=== PATIENT | female | born 1965 | race Caucasian/White ===

== ENCOUNTER 2017-12-17 13:35 | Emergency (ER) | payer BC, OTHER ==
[2017-12-17 13:44] VITALS: RESP 16
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
--- NOTE | 2017-12-17 15:09 | XR ---
EXAMINATION TYPE: XR chest 1V DATE OF EXAM: 12/17/2017 HISTORY: Shortness of breath. COMPARISON: None. TECHNIQUE: Single view of the chest is submitted. FINDINGS: Demonstrated are scattered senescent parenchymal change. There is no evidence for focal infiltrate. The heart is stable. Hilar and mediastinal structures are within normal limits. Degenerative changes are seen of the dorsal spine. IMPRESSION: 1. Chronic changes without evidence for acute pulmonary disease.
[2017-12-17 15:45] VITALS: BP 160/99; PULSE 70; TEMP 98
== END 2017-12-17 15:44 | disposition home or self-care (01) ==
LOC: EC 13:35
DX: S16.1XXA Strain of muscle, fascia and tendon at neck level, initial encounter (principal); S20.20XA Contusion of thorax, unspecified, initial encounter; S00.90XA Unspecified superficial injury of unspecified part of head, initial encounter; F17.200 Nicotine dependence, unspecified, uncomplicated; V89.2XXA Person injured in unspecified motor-vehicle accident, traffic, initial encounter; Y92.410 Unspecified street and highway as the place of occurrence of the external cause
CPT/HCPCS: 70450; 71045; 72125; 99284

== ENCOUNTER → 2022-05-22 | Outpatient (CLI) | payer OTHER ==
--- NOTE | 2022-05-22 10:27 | CTL ---
EXAMINATION TYPE: CT Low Dose Lung DATE OF EXAM ORDERED: 05/22/2022 HISTORY: Long-term tobacco use. Lung cancer screening CT DLP: 67.[address] CTDI: 1.8 mGy Automated exposure control for dose reduction was used. SCREENING VISIT: Baseline COMPARISON: None TECHNIQUE: Low dose computed tomography scan was performed through the chest at 1 mm thick sections a nd reconstructed images in multiple planes at 1 mm and [address] DIAGNOSTIC QUALITY: Satisfactory FINDINGS: LUNG NODULES: Present, detailed below: Scattered small nodules bilaterally. Largest measures 7.0 x 3.5 mm anterior left upper lobe axial image 109. There is a calcified 4 mm left upper lobe nodule or benign granuloma incidentally noted. LUNGS: COPD: Severity: Mild to moderate Fibrosis: Severity: None Lymph nodes: None Other findings: Ascending aorta measures up to 4.2 cm in diameter image 27 series 5 RIGHT PLEURAL SPACE: Effusion: None Calcification: None Thickening: None Pneumothorax: None LEFT PLEURAL SPACE: Effusion: None Calcification: None Thickening: None Pneumothorax: None HEART: Heart Size: Normal Coronary Calcification: Mild Pericardial Effusion: None OTHER FINDINGS: Upper abdomen: None Bony thorax: None Supraclavicular region: None Other: None IMPRESSION: Scattered small nodules as detailed above. CT LUNG RAD AND CT CHEST RECOMMENDATION: Lung-Rad 3 Probably Benign: 6 month follow-up LDCT. S Modifier (other clinically significant findings): S Note made of ascending aortic aneurysm up to 4.2 cm.
== END | disposition home or self-care (01) ==
LOC: RADCTMAIN 09:39
PROVIDERS: ATTEND Family Medicine
DX: Z12.2 Encounter for screening for malignant neoplasm of respiratory organs (principal); R91.8 Other nonspecific abnormal finding of lung field; Z87.891 Personal history of nicotine dependence
CPT/HCPCS: 71271

== ENCOUNTER → 2023-05-19 | Outpatient (CLI) | payer OTHER ==
--- NOTE | 2023-05-20 09:10 | CTL ---
EXAMINATION TYPE: CT Low Dose Lung DATE OF EXAM ORDERED: 05/19/2023 COMPARISON: 05/22/2022 HISTORY: . Low Dose CT Lung Screening CT DLP: 69.[address] CTDI: 1.9 mGy IV CONTRAST USED: None. SCREENING VISIT: First visit COMPARISON: None. TECHNIQUE: Low dose computed tomography scan was performed through the chest at 1 millimeter thick se ctions and reconstructed images in the coronal plane at [address] DIAGNOSTIC QUALITY: Satisfactory FINDINGS: LUNG NODULES: Stable 5.2 mm pulmonary nodule right upper lobe image 43. There is a 6.3 mm left upper lobe pulmonary nodule near the lingula with prior measurement of 7 mm this is seen best on image 162. 3 mm pulmonary nodule image 106 right upper lobe. Calcified granuloma left upper lobe unchanged. No new nodules present. LUNGS: COPD: Severity: Mild Fibrosis: Severity:None Lymph nodes: None Other findings: None RIGHT PLEURAL SPACE: Effusion: None Calcification: None Thickening: None Pneumothorax: None LEFT PLEURAL SPACE: Effusion: None Calcification: None Thickening: None Pneumothorax: None HEART: Heart Size: Mildly enlarged Coronary calcification: Mild Pericardial effusion: None Ascending thoracic aortic aneurysm measuring 4.3 cm AP dimension versus 4.2 cm previously. OTHER FINDINGS: Upper abdomen: No significant abnormality Bony thorax: Degenerative changes Supraclavicular region: No significant abnormalityOther: No significant abnormalityI IMPRESSION: Benign FOLLOW UP CT CHEST RECOMMENDATION: Follow-up screening in one year CT LUNG RAD: LUNG RAD CATEGORY 2 benign appearance and/or behavior.
== END | disposition home or self-care (01) ==
LOC: RADCTMAIN 14:42
PROVIDERS: ATTEND Family Medicine
DX: Z12.2 Encounter for screening for malignant neoplasm of respiratory organs (principal); J43.9 Emphysema, unspecified; I25.10 Atherosclerotic heart disease of native coronary artery without angina pectoris; F17.210 Nicotine dependence, cigarettes, uncomplicated
CPT/HCPCS: 71271

== ENCOUNTER 2024-11-12 15:52 | Emergency (ER) | payer BC, OTHER ==
--- NOTE | 2024-11-12 16:10 | ED ---
Abdominal Pain HPI - General Chief Complaint: Abdominal Pain Stated Complaint: sob lower abd pain Time Seen by Provider: 11/12/24 16:08 Source: patient, RN notes reviewed, old records reviewed Mode of arrival: ambulatory Limitations: no limitations - History of Present Illness Initial Comments: This is a 59-year-old female to the ER today for abdominal pain. Patient presents today for pelvic and lower abdominal pain across the anterior abdomen going on for about 5 days. Patient does have nausea vomiting diarrhea with blood. Patient admits to fevers, concern for appendicitis. No history abdominal surgery no history of gallbladder disease. Patient's abdomen is significantly swollen, bigger than normal, painful when she walks, unable to eat for the last 3 days MD Complaint: abdominal pain -: days(s) (5) Location: diffuse, suprapubic Radiation: suprapubic Migration to: suprapubic Severity: severe Severity scale (1-10): 10 Quality: cramping, aching Consistency: constant Improves With: nothing Worsens With: eating, vomiting, movement Context: other (0) Associated Symptoms: nausea, vomiting, diarrhea, constipation, anorexia Treatments Prior to Arrival: NSAIDs - Related Data Home Medications Medication Instructions Recorded Confirmed Aspirin EC [Ecotrin Low Dose] 81 mg PO DAILY 11/12/24 11/12/24 Ibuprofen [Motrin] 800 mg PO BID 11/12/24 11/12/24 Metoprolol Succinate (ER) [Toprol 50 mg PO DAILY 11/12/24 11/12/24 Xl] PARoxetine [Paxil] 20 mg PO DAILY 11/12/24 11/12/24 Allergies Allergy/AdvReac Type Severity Reaction Status Date / Time No Known Allergies Allergy Verified 11/12/24 18:51 Review of Systems ROS Statement: Those systems with pertinent positive or pertinent negative responses have been documented in the HPI. ROS Other: All systems not noted in ROS Statement are negative. Past Medical History Past Medical History: GERD/Reflux Additional Past Medical History / Comment(s): CYSTOCELE AND RECTOCELE History of Any Multi-Drug Resistant Organisms: None Reported Past Surgical History: Hysterectomy, Orthopedic Surgery, Tonsillectomy Additional Past Surgical History / Comment(s): ORIF LT ANKLE, SX TO REPAIR FX RT ARM Past Anesthesia/Blood Transfusion Reactions: No Reported Reaction Past Psychological History: Depression Smoking Status: Current every day smoker Past Alcohol Use History: Daily Past Drug Use History: Marijuana - Past Family History Mother Family Medical History: Cancer General Exam Limitations: no limitations General appearance: alert, in no apparent distress Head exam: Present: atraumatic, normocephalic, normal inspection Eye exam: Present: normal appearance, PERRL, EOMI. Absent: scleral icterus, conjunctival injection, periorbital swelling ENT exam: Present: normal exam, mucous membranes moist Neck exam: Present: normal inspection. Absent: tenderness, meningismus, lymphadenopathy Respiratory exam: Present: normal lung sounds bilaterally. Absent: respiratory distress, wheezes, rales, rhonchi, stridor Cardiovascular Exam: Present: regular rate, normal rhythm, normal heart sounds. Absent: systolic murmur, diastolic murmur, rubs, gallop, clicks GI/Abdominal exam: Present: distended, tenderness, guarding, normal bowel sounds. Absent: rebound, rigid Extremities exam: Present: normal inspection, full ROM, normal capillary refill. Absent: tenderness, pedal edema, joint swelling, calf tenderness Back exam: Present: normal inspection Neurological exam: Present: alert, oriented X3, CN II-XII intact Psychiatric exam: Present: normal affect, normal mood Skin exam: Present: warm, dry, intact, normal color. Absent: rash Course Vital Signs 11/12/24 11/12/24 11/12/24 15:54 17:46 18:33 Temperature 97.8 F Pulse Rate 85 75 75 Respiratory 18 20 16 Rate Blood Pressure 158/96 131/98 132/83 O2 Sat by Pulse 98 99 Oximetry - Reevaluation(s) Reevaluation #1: 11/12/24 16:29 Medical records reviewed No significant ER visits or inpatient hospitalizations Reevaluation #2: 11/12/24 17:27 Patient's pain is improving, no active nausea or vomiting, no current or vital sign changes Patient symptoms continue to improve, belly pain improved no change in vital signs Reevaluation #3: 11/12/24 20:19 Patient informed of results questions answered Reevaluation #4: Was pt. sent in by a medical professional or institution (, PA, PLANT HR MANAGER, urgent care, hospital, or group home...) When possible be specific @ -no Did you speak to anyone other than the patient for history (EMS, parent, family, police, friend...)? What history was obtained from this source @ -no Did you review nursing and triage notes (agree or disagree)? Why? @ -agree Are old charts reviewed (outside hosp., previous admission, EMS record, old EKG, old radiological studies, urgent care reports/EKG's, group home records)? Report findings @ -yes Differential Diagnosis (chest pain, altered mental status, abdominal pain women, abdominal pain men, vaginal bleeding, weakness, fever, dyspnea, syncope, headache, dizziness, GI bleed, back pain, seizure, CVA, palpatations, mental health, musculoskeletal)? @ -prior EKG interpreted by me (3pts min.). @ -yes X-rays interpreted by me (1pt min.). @ -yes negative for acute disease CT interpreted by me (1pt min.). @ -no U/S interpreted by me (1pt. min.). @ -no What testing was considered but not performed or refused? (CT, X-rays, U/S, labs)? Why? @ -none What meds were considered but not given or refused? Why? @ -none Did you discuss the management of the patient with other professionals (professionals i.e. , PA, PLANT HR MANAGER, lab, RT, psych nurse, social services manager, dock superintendent, teacher, tax revenue officer, casework manager)? Give summary @ -no Was smoking cessation discussed for >3mins.? @ -no Was critical care preformed (if so, how long)? @ -no Were there social determinants of health that impacted care today? How? (Homelessness, low income, unemployed, alcoholism, drug addiction, transportati on, low edu. Level, literacy, decrease access to med. care, alf, rehab)? @ -none Was there de-escalation of care discussed even if they declined (Discuss DNR or withdrawal of care, Hospice)? DNR status @ -no What co-morbidities impacted this encounter? (DM, HTN, Smoking, COPD, CAD, Cancer, CVA, ARF, Chemo, Hep., AIDS, mental health diagnosis, sleep apnea, morbid obesity)? @ -none Was patient admitted / discharged? Hospital course, mention meds given and route, prescriptions, significant lab abnormalities, going to OR and other pertinent info. @ - Undiagnosed new problem with uncertain prognosis? @ -no Drug Therapy requiring intensive monitoring for toxicity (Heparin, Nitro, Insulin, Cardizem)? @ -no Were any procedures done? @ -no Diagnosis/symptom? @ - Acute, or Chronic, or Acute on Chronic? @ -Acute Uncomplicated (without systemic symptoms) or Complicated (systemic symptoms)? @ -Complicated Side effects of treatment? @ -no Exacerbation, Progression, or Severe Exacerbation? @ -exacerbation Poses a threat to life or bodily function? How? (Chest pain, [place], [place], pneumonia, PE, COPD, DKA, ARF, appy, cholecystitis, CVA, Diverticulitis, Homicidal, Suicidal, threat to staff... and all critical care pts) @ -yes Reevaluation #5: Differential Abdominal Pain Women: Appendicitis, Cholecystitis, diverticulosis, ischemic bowel, pancreatitis, hepatitis, UTI, gastroenteritis, AAA, incarcerated hernia, bowel obstruction, constipation, inflammatory bowel, hepatitis, peptic ulcer disease, splenic infarction, perforated viscus, vulvitis, ovarian torsion, PID, kidney stone, placenta abruption, this is not meant to be an all-inclusive list Differential Dyspnea: Coronary syndrome, arrhythmia, tamponade, asthma, COPD, pulmonary embolism, pneumonia, pneumothorax, pulmonary effusion, anaphylaxis, diabetic ketoacidosis, flailed chest, pulmonary contusion, diaphragmatic rupture, anemia, neuromuscular, this is not meant to be an all-inclusive list. - Consultations Consultation #1: Spoke with Dr. Peace recommends transfer to [facility] for interventional radiology evaluation Medical Decision Making - Medical Decision Making 59 female to ER for evaluation of abdominal pain here, patient was having fevers and anorexia. Patient does have elevated white blood cell count and findings of diverticulitis with 6 cm abscess here in the ER, recommendation made to transfer patient to hospital and has interventional radiology, [facility] - Lab Data Result diagrams: 11/12/24 16:32 11/12/24 16:32 Lab Results 11/12/24 11/12/24 11/12/24 Range/Units 16:32 16:32 16:32 WBC 14.8 H (3.8-10.6) k/uL RBC 4.40 (3.80-5.40) m/uL Hgb 14.2 (11.4-16.0) gm/dL Hct 43.2 (34.0-46.0) % MCV 98.3 (80.0-100.0) fL MCH 32.3 (25.0-35.0) pg MCHC 32.9 (31.0-37.0) g/dL RDW 17.3 H (11.5-15.5) % Plt Count 244 (150-450) k/uL MPV 8.9 Neutrophils % 85 % Lymphocytes % 9 % Monocytes % 4 % Eosinophils % 1 % Basophils % 0 % Neutrophils # 12.5 H (1.3-7.7) k/uL Lymphocytes # 1.3 (1.0-4.8) k/uL Monocytes # 0.6 (0-1.0) k/uL Eosinophils # 0.2 (0-0.7) k/uL Basophils # 0.0 (0-0.2) k/uL Anisocytosis Slight Macrocytosis Slight PT 11.2 (10.0-12.5) sec INR 1.0 (<1.2) APTT 24.2 (22.0-30.0) sec D-Dimer 3.40 H (<0.60) mg/L FEU Sodium (137-145) mmol/L Potassium (3.5-5.1) mmol/L Chloride (98-107) mmol/L Carbon Dioxide (22-30) mmol/L Anion Gap mmol/L BUN (7-17) mg/dL Creatinine (0.52-1.04) mg/dL Est GFR (CKD-EPI)AfAm (>60 ml/min/1.73 sqM) Est GFR (CKD-EPI)NonAf (>60 ml/min/1.73 sqM) Glucose (74-99) mg/dL Plasma Lactic Acid Pablo (0.7-2.0) mmol/L Calcium (8.4-10.2) mg/dL Phosphorus (2.5-4.5) mg/dL Magnesium (1.6-2.3) mg/dL Total Bilirubin (0.2-1.3) mg/dL AST (14-36) U/L ALT (4-34) U/L Alkaline Phosphatase (38-126) U/L Troponin I (0.000-0.034) ng/mL Total Protein (6.3-8.2) g/dL Albumin (3.5-5.0) g/dL Amylase (30-110) U/L Lipase (23-300) U/L Urine Color Yellow Urine Appearance Cloudy H (Clear) Urine pH 6.0 (5.0-8.0) Ur Specific [place] 1.018 (1.001-1.035) Urine Protein 1+ H (Negative) Urine Glucose (UA) Negative (Negative) Urine Ketones Trace H (Negative) Urine Blood Small H (Negative) Urine Nitrite Negative (Negative) Urine Bilirubin 1+ H (Negative) Urine Urobilinogen 8.0 (<2.0) mg/dL Ur Leukocyte Esterase Moderate H (Negative) Urine RBC 6 H (0-5) /hpf Urine WBC 22 H (0-5) /hpf Ur Squamous Epith Cells 14 H (0-4) /hpf Urine Bacteria Many H (None) /hpf Urine Mucus Rare H (None) /hpf Serum Alcohol mg/dL 11/12/24 11/12/24 11/12/24 Range/Units 16:32 16:32 16:32 WBC (3.8-10.6) k/uL RBC (3.80-5.40) m/uL Hgb (11.4-16.0) gm/dL Hct (34.0-46.0) % MCV (80.0-100.0) fL MCH (25.0-35.0) pg MCHC (31.0-37.0) g/dL RDW (11.5-15.5) % Plt Count (150-450) k/uL MPV Neutrophils % % Lymphocytes % % Monocytes % % Eosinophils % % Basophils % % Neutrophils # (1.3-7.7) k/uL Lymphocytes # (1.0-4.8) k/uL Monocytes # (0-1.0) k/uL Eosinophils # (0-0.7) k/uL Basophils # (0-0.2) k/uL Anisocytosis Macrocytosis PT (10.0-12.5) sec INR (<1.2) APTT (22.0-30.0) sec D-Dimer (<0.60) mg/L FEU Sodium 131 L (137-145) mmol/L Potassium 3.0 L (3.5-5.1) mmol/L Chloride 95 L (98-107) mmol/L Carbon Dioxide 25 (22-30) mmol/L Anion Gap 11 mmol/L BUN 11 (7-17) mg/dL Creatinine 0.51 L (0.52-1.04) mg/dL Est GFR (CKD-EPI)AfAm >90 (>60 ml/min/1.73 sqM) Est GFR (CKD-EPI)NonAf >90 (>60 ml/min/1.73 sqM) Glucose 104 H (74-99) mg/dL Plasma Lactic Acid Pablo 1.3 (0.7-2.0) mmol/L Calcium 8.8 (8.4-10.2) mg/dL Phosphorus 3.8 (2.5-4.5) mg/dL Magnesium 1.6 (1.6-2.3) mg/dL Total Bilirubin 1.5 H (0.2-1.3) mg/dL AST 33 (14-36) U/L ALT 14 (4-34) U/L Alkaline Phosphatase 188 H (38-126) U/L Troponin I <0.012 (0.000-0.034) ng/mL Total Protein 6.2 L (6.3-8.2) g/dL Albumin 3.3 L (3.5-5.0) g/dL Amylase <30 L (30-110) U/L Lipase 21 L (23-300) U/L Urine Color Urine Appearance (Clear) Urine pH (5.0-8.0) Ur Specific [place] (1.001-1.035) Urine Protein (Negative) Urine Glucose (UA) (Negative) Urine Ketones (Negative) Urine Blood (Negative) Urine Nitrite (Negative) Urine Bilirubin (Negative) Urine Urobilinogen (<2.0) mg/dL Ur Leukocyte Esterase (Negative) Urine RBC (0-5) /hpf Urine WBC (0-5) /hpf Ur Squamous Epith Cells (0-4) /hpf Urine Bacteria (None) /hpf Urine Mucus (None) /hpf Serum Alcohol <10 mg/dL - Radiology Data Radiology results: report reviewed (CT abdomen pelvis positive for diverticulitis with abscess), image reviewed Disposition Clinical Impression: Diverticulitis, Abdominal colic, Abdominal pain, Acute abdomen, Diverticulitis of intestine with abscess Disposition: OTHER INSTITUTION NOT DEFINED Condition: Fair Is patient prescribed a controlled substance at d/c from ED?: No Referrals: Naman Jimenez MD [Primary Care Provider] - 1-2 days Time of Disposition: 20:00
[2024-11-12] MEDS: SODIUM CHLORIDE 0.9% 1,000 ML IV STA ×2 (16:42→17:37)
[2024-11-12] MEDS: ONDANSETRON 4 MG/2 ML VIAL IVP STA (16:42)
[2024-11-12] MEDS: PANTOPRAZOLE 40 MG/10 ML VIAL IVP STA (16:44)
[2024-11-12] MEDS: SODIUM CHLORIDE 0.9% 500 ML 500 ML IV STA (16:45)
[2024-11-12 16:55] LABS: Anisocytosis Slight; Basophils % (A) 0 %; Eosinophils # (A) 0.2 k/uL (0-0.7); Eosinophils % (A) 1 %; HCT 43.2 % (34.0-46.0); HGB 14.2 gm/dL (11.4-16.0); Lymphocytes # (A) 1.3 k/uL (1.0-4.8); Lymphocytes % (A) 9 %; MCH 32.3 pg (25.0-35.0); MCHC 32.9 g/dL (31.0-37.0); MCV 98.3 fL (80.0-100.0); Macrocytosis Slight; Mean Platelet Volume 8.9; Monocytes # (A) 0.6 k/uL (0-1.0); Monocytes % (A) 4 %; Neutrophils # (A) 12.5 k/uL (1.3-7.7); Neutrophils % (A) 85 %; Platelet Count 244 k/uL (150-450); RDW 17.3 % (11.5-15.5); WBC 14.8 k/uL (3.8-10.6)
[2024-11-12 17:08] LABS: ALT 14 U/L (4-34); AST 33 U/L (14-36); African American GFR (CKD) >90 (>60 ml/min/1.73 sqM); Albumin 3.3 g/dL (3.5-5.0); Alcohol <10 mg/dL; Alkaline Phosphatase 188 U/L (38-126); Amylase <30 U/L (30-110); Anion Gap 11 mmol/L; Blood Urea Nitrogen 11 mg/dL (7-17); Calcium 8.8 mg/dL (8.4-10.2); Carbon Dioxide 25 mmol/L (22-30); Chloride 95 mmol/L (98-107); Glucose 104 mg/dL (74-99); Lipase 21 U/L (23-300); Magnesium 1.6 mg/dL (1.6-2.3); Non-African American GFR(CKD) >90 (>60 ml/min/1.73 sqM); Phosphorus 3.8 mg/dL (2.5-4.5); Sodium 131 mmol/L (137-145); Total Bilirubin 1.5 mg/dL (0.2-1.3); Total Protein 6.2 g/dL (6.3-8.2)
[2024-11-12 17:09] LABS: Partial Thromboplastin Time 24.2 sec (22.0-30.0); Prothrombin Time 11.2 sec (10.0-12.5)
[2024-11-12 17:13] LABS: Appearance,Urine Cloudy (Clear); Bacteria,Urine Many /hpf; Bilirubin,Urine 1+ (Negative); Blood,Urine Small (Negative); Color,Urine Yellow; Glucose,Urine (UA) Negative (Negative); Ketones,Urine Trace (Negative); Leukocyte Esterase,Urine Moderate (Negative); Mucus,Urine Rare /hpf; Nitrite,Urine Negative (Negative); Protein,Urine 1+ (Negative); RBC,Urine 6 /hpf (0-5); Specific Gravity,Urine 1.018 (1.001-1.035); Squamous Epithelial Cell,Urine 14 /hpf (0-4); WBC,Urine 22 /hpf (0-5)
[2024-11-12] MEDS: POTASSIUM CHLORIDE 10 MEQ in WATER FOR INJECTION 1 100ML.BAG IVPB SCH (17:32)
[2024-11-12] MEDS: KETOROLAC 15 MG/ML 1 ML VIAL IVP STA (17:32)
[2024-11-12] MEDS: AMPICILLIN-SULBACTAM 3 GM in SODIUM CHLORIDE 0.9% 100 ML IVPB STA (17:39)
--- NOTE | 2024-11-12 18:38 | CT ---
EXAMINATION TYPE: CT abdomen pelvis w con DATE OF EXAM: 11/12/2024 6:26 PM COMPARISON: None. CLINICAL INDICATION: Female, 59 years old with history of pain, Lower abdominal pain, positive dimer. TECHNIQUE: Axial images were obtained from above the diaphragm to the pubic rami in the axial plane a t 5 mm thick sections. Reconstructed images are reviewed on the computer in the coronal plane. CONTRAST: 100 mL of Isovue 370. Study performed without Oral Contrast DLP: combined 809.5 mGycm, Automated exposure control for dose reduction was used. FINDINGS: Limited CT sections are obtained the lung bases. The lung bases are clear. CT ABDOMEN: Liver: Normal Spleen: Normal Pancreas: Normal Adrenal glands: The adrenal glands are normal. Gallbladder: Normal Kidneys: No masses are evident. No hydronephrosis is present. No cysts are present. Delayed images were obtained through the kidneys, which remain unremarkable. Aorta: Vascular calcification is within the aorta. There is mild fusiform prominence of the mid abdo corry aorta with an AP diameter 2.6 cm. Inferior vena cava: Normal. CT PELVIS: There are prominent fluid-filled small bowel loops within the left mid abdomen. Some oral contrast is within the colon. Diverticular changes are within the sigmoid colon. Clinical consideration for dist al sigmoid colon acute diverticulitis is recommended. There appears to be a large low density collect ion with some punctate very low dense areas which could be air within an abscess. This area measures approximately 6.6 cm in diameter. There are loops of bowel which are incompletely distended or lack o ral contrast limiting their evaluation. Appendix: Not identified. Urinary bladder: Normal. Genitourinary structures: Uterus and ovaries are not identified. Osseous structures: No suspicious lytic or sclerotic lesions. Report was called any case discussed with the emergency room physician by Dr. Glover by telephone at the time of interpretation. IMPRESSION: 1. Suspected 6 cm abscess mid pelvis from acute diverticulitis. 2. Multiple diverticuli within the sigmoid colon with ill-defined thickened wall. 3. There may be some ileus or partial small bowel obstruction in the left midabdomen with dilated flu id-filled small bowel loops. [facility], Workstation: [id number], 11/12/2024 6:36 PM
[2024-11-12] MEDS: ACETAMINOPHEN IV (For NPO) 1,000 MG in EMPTY BAG 1 BAG IVPB STA (18:39)
[2024-11-12] MEDS: HYDROmorphone 1 MG/ML 1 ML SYRINGE IVP STA ×2 (19:08→21:18)
--- NOTE | 2024-11-12 19:16 | CT ---
EXAMINATION TYPE: CT angio chest DATE OF EXAM: 11/12/2024 6:31 PM COMPARISON: None. CLINICAL INDICATION: Female, 59 years old with history of pain, Lower abdominal pain, positive dimer. , TECHNIQUE: CT of the chest is performed on a spiral scan at 2 mm thick sections. Study is performed with intravenous contrast timed for evaluation for pulmonary embolism. This will limit additional po rtions of the evaluation. 3-D MIP images reconstructed by the technologist are reviewed on the compu ter in the coronal and sagittal planes. Contrast used:100 mL of Isovue 370 with IV Contrast, (none if empty) Oral contrast used: (none if empty) CT DLP: combined 809.5 mGycm, Automated exposure control for dose reduction was used. FINDINGS: No persistent filling defects are evident to suggest an acute pulmonary embolism. No mediastinal or hilar adenopathy enlarged by CT criteria is evident. The ascending aorta diameter at the level of the main pulmonary artery is 3.6 cm. The main pulmonary artery diameter at the bifurcation is 2.1 cm. There is a 0.4 cm peripheral nodule right lateral apex. Series 3 image 37. Ill-defined peripheral 0.3 cm densities in the periphery of the lateral right upper lung field. Serie s 3 image 54. There is some mild subsegmental atelectasis within the dependent portion of the lung bases bilaterall y. Limited CT sections were through the upper abdomen. Upper abdomen appears unremarkable. IMPRESSION: 1. No acute pulmonary embolism. 2. Couple of tiny nodules. Follow-up CT chest recommended to evaluate these findings and 3-6 months.. [facility], Workstation: [id number], 11/12/2024 7:14 PM
--- NOTE | 2024-11-12 19:23 | US ---
EXAMINATION TYPE: US venous doppler duplex LE DATE OF EXAM: 11/12/2024 7:00 PM COMPARISON: NONE CLINICAL INDICATION: Female, 59 years old with history of dvt; On asparin; Abdominal Pain, fell few w eeks ago; Patient denies any other signs, symptoms, or relevant history TECHNIQUE: The lower extremity deep venous system is examined utilizing real time linear array sonog papa with graded compression, color doppler sonography, and spectral doppler. SIDE PERFORMED: Bilateral FINDINGS: VESSELS IMAGED: Common Femoral Vein Deep Femoral Vein Greater Saphenous Vein * Femoral Vein Popliteal Vein Small Saphenous Vein * Proximal Calf Veins (* superficial vessels) Right Leg: Negative for DVT, Color Doppler imaging shows patency of the vessels. Spectral waveforms are within normal limits. Left Leg: Negative for DVT, Color Doppler imaging shows patency of the vessels. Spectral waveforms a re within normal limits. IMPRESSION: 1. Bilateral lower extremity ultrasound negative for deep venous thrombosis [facility], , 11/12/2024 7:21 PM
[2024-11-12 21:17] VITALS: BP 126/85; PULSE 72; RESP 18; TEMP 98
== END 2024-11-12 20:40 | disposition other institution (70) ==
LOC: EC 15:52
DX: K57.20 Diverticulitis of large intestine with perforation and abscess without bleeding (principal); F17.200 Nicotine dependence, unspecified, uncomplicated
CPT/HCPCS: 36415; 85379; 80053; 82150; 83605; 83690; 83735; 84100; 84484; 85025; 85610; 85730; 81001; 87040; 80320; 93970; 71275; 74177; 99285; 96365; 96367; 96368; 96366 ×3; 96375 ×4; 96376; 96361; J2405; J1171; J3480; J0295; J0131; J1885; Q9967; J2470

== ENCOUNTER 2024-11-21 14:21 | Inpatient (IN) | payer BC ==
[2024-11-21 15:00] LABS: Anisocytosis Slight; Basophils # (A) 0.1 k/uL (0-0.2); Basophils % (A) 0 %; Eosinophils # (A) 0.2 k/uL (0-0.7); Eosinophils % (A) 1 %; HGB 13.6 gm/dL (11.4-16.0); Hypochromasia Slight; Lymphocytes # (A) 1.6 k/uL (1.0-4.8); Lymphocytes % (A) 8 %; MCH 31.6 pg (25.0-35.0); MCHC 31.5 g/dL (31.0-37.0); MCV 100.2 fL (80.0-100.0); Macrocytosis Slight; Mean Platelet Volume 7.9; Monocytes # (A) 1.1 k/uL (0-1.0); Monocytes % (A) 5 %; Neutrophils # (A) 17.9 k/uL (1.3-7.7); Neutrophils % (A) 85 %; Platelet Count 463 k/uL (150-450); RDW 16.3 % (11.5-15.5); WBC 21.2 k/uL (3.8-10.6)
[2024-11-21 15:10] LABS: ALT 21 U/L (4-34); AST 32 U/L (14-36); African American GFR (CKD) >90 (>60 ml/min/1.73 sqM); Albumin 3.5 g/dL (3.5-5.0); Alkaline Phosphatase 131 U/L (38-126); Amylase 31 U/L (30-110); Anion Gap 10 mmol/L; Blood Urea Nitrogen 8 mg/dL (7-17); Calcium 8.7 mg/dL (8.4-10.2); Carbon Dioxide 27 mmol/L (22-30); Chloride 94 mmol/L (98-107); Glucose 99 mg/dL (74-99); Lipase 32 U/L (23-300); Non-African American GFR(CKD) >90 (>60 ml/min/1.73 sqM); Potassium 3.7 mmol/L (3.5-5.1); Sodium 131 mmol/L (137-145); Total Bilirubin 0.9 mg/dL (0.2-1.3); Total Protein 6.5 g/dL (6.3-8.2)
--- NOTE | 2024-11-21 15:46 | XR ---
EXAMINATION TYPE: XR KUB DATE OF EXAM: 11/21/2024 COMPARISON: CT of the pelvis 11/12/2024 HISTORY: Abdomen pain TECHNIQUE: Single upright KUB image of the abdomen is obtained FINDINGS: Dilated gas-filled small bowel within the left upper quadrant with air-fluid level. This measures up to 4.1 cm. Gas is identified within the rectum. No convincing evidence for pneumoperitoneum. No unusual calcifications. The lung bases are clear. The osseous structures are intact. IMPRESSION: Dilated small bowel within the left upper quadrant with air-fluid level. Raises concern for ileus kel dereck partial small bowel obstruction. [facility], , 11/21/2024 3:44 PM
[2024-11-21] MEDS: LACTATED RINGERS 1,000 ML BAG IV STA ×2 (16:09→18:21)
[2024-11-21] MEDS: ONDANSETRON 4 MG/2 ML VIAL IVP STA (16:10)
[2024-11-21] MEDS: MORPHINE SULFATE 2 MG/ML SYRINGE IVP STA ×2 (16:11→21:40)
[2024-11-21 16:50] LABS: Appearance,Urine Cloudy (Clear); Bilirubin,Urine 1+ (Negative); Blood,Urine Trace (Negative); Color,Urine Dark Brown; Glucose,Urine (UA) Negative (Negative); Hyaline Casts,Urine 7 /lpf (0-2); Ketones,Urine 1+ (Negative); Leukocyte Esterase,Urine Small (Negative); Mucus,Urine Many /hpf; Nitrite,Urine Negative (Negative); Protein,Urine 1+ (Negative); RBC,Urine 10 /hpf (0-5); Specific Gravity,Urine 1.033 (1.001-1.035); Squamous Epithelial Cell,Urine 9 /hpf (0-4); WBC,Urine 6 /hpf (0-5)
[2024-11-21] MEDS: PIPERACILLIN-TAZOBACTAM 3.375 GM in SODIUM CHLORIDE 0.9% 100 ML IVPB STA (17:15)
--- NOTE | 2024-11-21 17:55 | CT ---
EXAMINATION TYPE: CT abdomen pelvis w con CT DLP: 679.8 mGycm, Automated exposure control for dose reduction was used. DATE OF EXAM: 11/21/2024 5:43 PM COMPARISON: CT abdomen pelvis 11/12/2024, KUB radiograph 11/21/2024 CLINICAL INDICATION:Female, 59 years old with history of abd pain, recent abscess drainage by IR; abd pain, recent abscess drainage by IR at [place]. TECHNIQUE: Standard CT of the abdomen and pelvis following the administration of 100 cc of Isovue 3 00 IV contrast material. Coronal and sagittal reformats were performed. FINDINGS: LOWER CHEST: Minimal right lower lobe dependent subsegmental atelectasis. ABDOMEN LIVER: No focal lesion. Similar somewhat heterogenous attenuation. GALLBLADDER AND BILE DUCTS: Gallbladder is unremarkable. Dilated common bile duct measuring up to 1.1 cm again. PANCREAS: Unremarkable. SPLEEN: Unremarkable. ADRENAL GLANDS: Unremarkable. KIDNEYS AND URETERS: No evidence of hydronephrosis or renal calculus. The knees enhance symmetrically . Contrast is demonstrated within both collecting systems and proximal ureters on the delayed phase. PELVIS BLADDER: Unremarkable REPRODUCTIVE: The uterus is surgically absent. ABDOMEN & PELVIS STOMACH AND BOWEL: Stomach appears unremarkable. Dilated jejunum and duodenum with wall thickening of the jejunum. The jejunum measures up to 3.8 cm. No focal transition point. Sequential wall thickenin g of the sigmoid colon with stranding fat stranding. Sigmoid and descending colon diverticulosis. No evidence of bowel obstruction. PERITONEUM/RETROPERITONEUM: No evidence of pneumoperitoneum or free fluid. Slightly decreased size of peripheral enhancing thick wall abscess within the central pelvis just superior to the vaginal cuff. This demonstrates internal gas and fluid and measures grossly 6.2 x 5.5 x 6.2 cm cannot exclude fist ulization with the adjacent small bowel superiorly. Mesenteric edema. VASCULATURE: Moderate atherosclerotic calcifications are present throughout the abdominal aorta and i ts branches. No evidence of aortic aneurysm. Ectasia of the infrarenal abdominal aorta measuring up t o 2.7 cm. Prominent eccentric mural thrombus within the upper abdominal aorta. MUSCULOSKELETAL: No acute osseous abnormalities. The right L5 transverse process demonstrates the art iculation with the sacrum. LYMPH NODES: No gross evidence for lymphadenopathy. SOFT TISSUE/ABDOMINAL WALL: Unremarkable IMPRESSION: 1. Marginal decrease in size of pelvic abscess from prior examination now measuring up to 6.2 cm, pr eviously measured up to 6.6 cm. 2. Inflammatory changes with wall thickening involving the sigmoid colon with diverticula. May repres ent a chronic infectious/inflammatory colitis and/or diverticulitis. 3. Small bowel dilatation without focal transition point with some wall thickening. Findings probably represent a reactive ileus. [facility], , 11/21/2024 5:53 PM
[2024-11-21] MEDS: ACETAMINOPHEN TAB 500 MG TAB PO STA (18:37)
[2024-11-21] MEDS ORDERED: NALOXONE 0.4 MG/ML 1 ML VIAL IV PRN (19:03)
[2024-11-21] MEDS: LACTATED RINGERS 1,000 ML IV SCH (19:12)
--- NOTE | 2024-11-21 21:26 | ED ---
General Adult HPI - General Chief complaint: Abdominal Pain Stated complaint: pain rt back, abd Time Seen by Provider: 11/21/24 15:35 Source: patient, RN notes reviewed, old records reviewed Mode of arrival: wheelchair Limitations: no limitations - History of Present Illness Initial comments: Patient is a 59-year-old female who presents emergency department with abdominal pain, distention. Patient had a diverticular abscess diagnosed at our facility on November 12, 2024. Was transferred to [facility] for IR drainage of this abscess. Was discharged home last after IR drain was removed and patient was discharged home on oral antibiotics. States that over the last day or so, she has noticed more abdominal pain, some mild back pain, as well as abdominal distention. Lack of appetite. No significant nausea or vomiting. No significant diarrhea or constipation. Presents for further evaluation at this time. Denies any fevers or chills. Was sent in by her PCP. Patient would not like to be transferred back to [facility]. - Related Data Home Medications Medication Instructions Recorded Confirmed Aspirin EC [Ecotrin Low Dose] 81 mg PO DAILY 11/12/24 11/21/24 Ibuprofen [Motrin] 800 mg PO BID 11/12/24 11/21/24 Metoprolol Succinate (ER) [Toprol 50 mg PO DAILY 11/12/24 11/21/24 Xl] PARoxetine [Paxil] 20 mg PO DAILY 11/12/24 11/21/24 Allergies Allergy/AdvReac Type Severity Reaction Status Date / Time No Known Allergies Allergy Verified 11/21/24 17:00 Review of Systems ROS Statement: Those systems with pertinent positive or pertinent negative responses have been documented in the HPI. Review of Systems: CONST: Denies fever EYES: Denies blurry vision ENT: Denies nasal congestion C/V: Denies Chest pain RESP: Denies shortness of breath GI: Endorses abdominal pain : Denies dysuria SKIN: Denies rash. MSK: Denies joint pain. NEURO: Denies headache ROS Other: All systems not noted in ROS Statement are negative. 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 diverticultis abscess Past Anesthesia/Blood Transfusion Reactions: No Reported Reaction Past Psychological History: Depression Smoking Status: Current every day smoker Past Alcohol Use History: Daily Past Drug Use History: Marijuana - Past Family History Mother Family Medical History: Cancer General Exam - General Exam Comments Initial Comments: General: Appears in mild to moderate distress HEAD: Normal with no signs of head trauma. EYES: PERRLA, EOMI, conjunctiva normal, no discharge. ENT: Hearing grossly intact, normal oropharynx. RESPIRATORY: Clear breath sounds bilaterally. No wheezes, rales, or rhonchi. C/V: Regular rate and rhythm. S1 and S2 auscultated, no edema, peripheral pulses 2+ and intact throughout ABD: Abdomen soft, mildly distended. No guarding. No rebound tenderness. No peritoneal signs. EXT: Normal range of motion, no obvious deformity SKIN: Surgical drain site does appear slightly bruised however no obvious infectious process. No discharge. Is tender. Located over the posterior right buttock. NEURO: Alert and oriented x 4. Cranial nerves II-XII intact. No focal sensory or strength deficits. Limitations: no limitations Course Vital Signs 11/21/24 11/21/24 11/21/24 14:34 16:16 18:16 Temperature 98.5 F 99.4 F 100.4 F H Pulse Rate 91 83 87 Respiratory 20 19 19 Rate Blood Pressure 113/83 111/71 102/69 O2 Sat by Pulse 97 94 L 94 L Oximetry 11/21/24 19:47 Temperature 99.9 F H Pulse Rate Respiratory Rate Blood Pressure O2 Sat by Pulse Oximetry Medical Decision Making - Medical Decision Making Was pt. sent in by a medical professional or institution (, PA, FEED INSPECTION SUPERVISOR, urgent care, hospital, or halfway...) When possible be specific @ -Sent by PCP Dr. Jimenez for likely admission for recurrence of diverticular abscess Did you speak to anyone other than the patient for history (EMS, parent, family, police, friend...)? What history was obtained from this source @ -No Did you review nursing and triage notes (agree or disagree)? Why? @ -I reviewed and agree with nursing and triage notes Were old charts reviewed (outside hosp., previous admission, EMS record, old EKG, old radiological studies, urgent care reports/EKG's, halfway records)? Report findings @ -Reviewed visit from October 2024 when patient was transferred to [facility] for diverticular abscess and IR drainage. Differential Diagnosis (chest pain, altered mental status, abdominal pain women, abdominal pain men, vaginal bleeding, weakness, fever, dyspnea, syncope, headache, dizziness, GI bleed, back pain, seizure, CVA, palpatations, mental health, musculoskeletal)? @ -Differential Abdominal Pain Women: Appendicitis, Cholecystitis, diverticulosis, ischemic bowel, pancreatitis, hepatitis, UTI, gastroenteritis, AAA, incarcerated hernia, bowel obstruction, constipation, inflammatory bowel, hepatitis, peptic ulcer disease, splenic infarction, perforated viscus, vulvitis, ovarian torsion, PID, kidney stone, placenta abruption, this is not meant to be an all-inclusive list EKG interpreted by me (3pts min.). @ -None done X-rays interpreted by me (1pt min.). @ -None done CT interpreted by me (1pt min.). @ -CT abdomen pelvis shows continued abscess in the pelvis now measuring 6.2 cm. Reaccumulation versus continued abscess. Patient also has significant inflammatory changes of the sigmoid colon with diverticula concerning for diverticulitis. Possible ileus as well. U/S interpreted by me (1pt. min.). @ -None done What testing was considered but not performed or refused? (CT, X-rays, U/S, labs)? Why? @ -None What meds were considered but not given or refused? Why? @ -None Did you discuss the management of the patient with other professionals (professionals i.e. , PA, FEED INSPECTION SUPERVISOR, lab, RT, psych nurse, social insurance adviser, home care specialist, teacher, correction officer penitentiary, manager case management)? Give summary @ -Discussed with on-call surgeon, Dr. Gallegos who is in agreement plan for admission, antibiotics, fluids, n.p.o. after midnight. Requested admission to medicine. Discussed the case with medicine admitting physician, Dr. Jimenez who accepted the admission. Requested consult placed to interventional radiology as well as infectious disease. Was smoking cessation discussed for >3mins.? @ -No Was critical care preformed (if so, how long)? @ -Yes, 31 minutes Were there social determinants of health that impacted care today? How? (Homelessness, low income, unemployed, alcoholism, drug addiction, transportation, low edu. Level, literacy, decrease access to med. care, senior care, rehab)? @ -No Was there de-escalation of care discussed even if they declined (Discuss DNR or withdrawal of care, Hospice)? DNR status @ -No What co-morbidities impacted this encounter? (DM, HTN, Smoking, COPD, CAD, Cancer, CVA, ARF, Chemo, Hep., AIDS, mental health diagnosis, sleep apnea, morbid obesity)? @ -Recent diverticular abscess drainage by IR Was patient admitted / discharged? Hospital course, mention meds given and route, prescriptions, significant lab abnormalities, going to OR and other pertinent info. @ -Based on the patient's presentation and physical exam, presents with worsening abdominal pain in the setting of recent diverticular abscess drainage by IR at another facility. Vital signs are within acceptable limits at this time. Will obtain abdominal workup. Patient will receive analgesia medications, IV fluids, as well as CT abdomen pelvis. Workup was started in triage and labs have already returned remarkable for leukocytosis of 21. Lactic acid within normal limits. Due to these findings, patient empirically started on Zosyn and we did obtain blood cultures. Does not meet criteria for sepsis. Patient was in agreement this plan. Given a total of 2 L of lactated Ringer's and placed on a maintenance infusion. Remainder the patient's laboratory studies returned unremarkable. CT revealed continued diverticular abscess with diverticulitis and possible ileus. Discussed the case with the patient. She is already on broad-spectrum Zosyn as well as having her pain controlled with morphine. Patient did spike a small fever and was given Tylenol. Patient will be admitted. Discussed with on-call surgeon, Dr. Gallegos who is in agreement plan for admission, antibiotics, fluids, n.p.o. after midnight. Requested admission to medicine. Discussed the case with medicine admitting physician, Dr. Jimenez who accepted the admission. Requested consult placed to interventional radiology as well as infectious disease. Undiagnosed new problem with uncertain prognosis? @ -No Drug Therapy requiring intensive monitoring for toxicity (Heparin, Nitro, Insulin, Cardizem)? @ -No Were any procedures done? @ -No Diagnosis/symptom? @ -Diverticulitis with abscess Acute, or Chronic, or Acute on Chronic? @ -Acute Uncomplicated (without systemic symptoms) or Complicated (systemic symptoms)? @ -Complicated Side effects of treatment? @ -No Exacerbation, Progression, or Severe Exacerbation? @ -No Poses a threat to life or bodily function? How? (Chest pain, [place], [place], pneumonia, PE, COPD, DKA, ARF, appy, cholecystitis, CVA, Diverticulitis, Homicidal, Suicidal, threat to staff... and all critical care pts) @ -Yes - Lab Data Result diagrams: 11/21/24 14:51 11/21/24 14:51 Lab Results 11/21/24 11/21/24 11/21/24 Range/Units 14:51 14:51 14:51 WBC 21.2 H (3.8-10.6) k/uL RBC 4.30 (3.80-5.40) m/uL Hgb 13.6 (11.4-16.0) gm/dL Hct 43.0 (34.0-46.0) % MCV 100.2 H (80.0-100.0) fL MCH 31.6 (25.0-35.0) pg MCHC 31.5 (31.0-37.0) g/dL RDW 16.3 H (11.5-15.5) % Plt Count 463 H (150-450) k/uL MPV 7.9 Neutrophils % 85 % Lymphocytes % 8 % Monocytes % 5 % Eosinophils % 1 % Basophils % 0 % Neutrophils # 17.9 H (1.3-7.7) k/uL Lymphocytes # 1.6 (1.0-4.8) k/uL Monocytes # 1.1 H (0-1.0) k/uL Eosinophils # 0.2 (0-0.7) k/uL Basophils # 0.1 (0-0.2) k/uL Hypochromasia Slight Anisocytosis Slight Macrocytosis Slight Sodium 131 L (137-145) mmol/L Potassium 3.7 (3.5-5.1) mmol/L Chloride 94 L (98-107) mmol/L Carbon Dioxide 27 (22-30) mmol/L Anion Gap 10 mmol/L BUN 8 (7-17) mg/dL Creatinine 0.38 L (0.52-1.04) mg/dL Est GFR (CKD-EPI)AfAm >90 (>60 ml/min/1.73 sqM) Est GFR (CKD-EPI)NonAf >90 (>60 ml/min/1.73 sqM) Glucose 99 (74-99) mg/dL Plasma Lactic Acid Pablo 1.0 (0.7-2.0) mmol/L Calcium 8.7 (8.4-10.2) mg/dL Total Bilirubin 0.9 (0.2-1.3) mg/dL AST 32 (14-36) U/L ALT 21 (4-34) U/L Alkaline Phosphatase 131 H (38-126) U/L Total Protein 6.5 (6.3-8.2) g/dL Albumin 3.5 (3.5-5.0) g/dL Amylase 31 (30-110) U/L Lipase 32 (23-300) U/L Urine Color Urine Appearance (Clear) Urine pH (5.0-8.0) Ur Specific [place] (1.001-1.035) Urine Protein (Negative) Urine Glucose (UA) (Negative) Urine Ketones (Negative) Urine Blood (Negative) Urine Nitrite (Negative) Urine Bilirubin (Negative) Urine Urobilinogen (<2.0) mg/dL Ur Leukocyte Esterase (Negative) Urine RBC (0-5) /hpf Urine WBC (0-5) /hpf Ur Squamous Epith Cells (0-4) /hpf Hyaline Casts (0-2) /lpf Urine Mucus (None) /hpf 11/21/24 Range/Units 16:38 WBC (3.8-10.6) k/uL RBC (3.80-5.40) m/uL Hgb (11.4-16.0) gm/dL Hct (34.0-46.0) % MCV (80.0-100.0) fL MCH (25.0-35.0) pg MCHC (31.0-37.0) g/dL RDW (11.5-15.5) % Plt Count (150-450) k/uL MPV Neutrophils % % Lymphocytes % % Monocytes % % Eosinophils % % Basophils % % Neutrophils # (1.3-7.7) k/uL Lymphocytes # (1.0-4.8) k/uL Monocytes # (0-1.0) k/uL Eosinophils # (0-0.7) k/uL Basophils # (0-0.2) k/uL Hypochromasia Anisocytosis Macrocytosis Sodium (137-145) mmol/L Potassium (3.5-5.1) mmol/L Chloride (98-107) mmol/L Carbon Dioxide (22-30) mmol/L Anion Gap mmol/L BUN (7-17) mg/dL Creatinine (0.52-1.04) mg/dL Est GFR (CKD-EPI)AfAm (>60 ml/min/1.73 sqM) Est GFR (CKD-EPI)NonAf (>60 ml/min/1.73 sqM) Glucose (74-99) mg/dL Plasma Lactic Acid Pablo (0.7-2.0) mmol/L Calcium (8.4-10.2) mg/dL Total Bilirubin (0.2-1.3) mg/dL AST (14-36) U/L ALT (4-34) U/L Alkaline Phosphatase (38-126) U/L Total Protein (6.3-8.2) g/dL Albumin (3.5-5.0) g/dL Amylase (30-110) U/L Lipase (23-300) U/L Urine Color Dark Brown Urine Appearance Cloudy H (Clear) Urine pH 6.0 (5.0-8.0) Ur Specific [place] 1.033 (1.001-1.035) Urine Protein 1+ H (Negative) Urine Glucose (UA) Negative (Negative) Urine Ketones 1+ H (Negative) Urine Blood Trace H (Negative) Urine Nitrite Negative (Negative) Urine Bilirubin 1+ H (Negative) Urine Urobilinogen 8.0 (<2.0) mg/dL Ur Leukocyte Esterase Small H (Negative) Urine RBC 10 H (0-5) /hpf Urine WBC 6 H (0-5) /hpf Ur Squamous Epith Cells 9 H (0-4) /hpf Hyaline Casts 7 H (0-2) /lpf Urine Mucus Many H (None) /hpf Critical Care Time Critical Care Time: Yes Total Critical Care Time: 31 Disposition Clinical Impression: Diverticulitis, Abscess Disposition: ADMITTED IP TO THIS [facility] Condition: Stable Time of Disposition: 19:00
--- NOTE | 2024-11-21 21:42 | P.CON ---
Consult Note - . Consult date: 11/21/24 Assessment/Plan:: Patient Evaluated by myself in ER Patient is a 59-year-old female who presents to the [facility] emergency department with abdominal pain and distention. Patient had a diverticular abscess diagnosed at this facility on November 12, 2024. IR was unavailable at that time. Patient was transferred to [facility] for IR drainage of this abscess. Patient was discharged home last after IR drain was removed. Patient was discharged home on oral antibiotics. She states that over the last day or so, she has noticed more abdominal pain, some mild back pain, as well as abdominal distention. She has a lack of appetite. No significant nausea or vomiting. No significant diarrhea or constipation. Presents for further evaluation at this time. Patient would not like to be transferred back to [facility]. Patient had a CT-AP performed in the ER that the patient has a recurrence of her diveticular abscess. ROS Statement: Those systems with pertinent positive or pertinent negative responses have been documented in the HPI. Review of Systems: CONST: Denies fever EYES: Denies blurry vision ENT: Denies nasal congestion C/V: Denies Chest pain RESP: Denies shortness of breath GI: Endorses abdominal pain : Denies dysuria SKIN: Denies rash. MSK: Denies joint pain. NEURO: Denies headache ROS Other: All systems not noted in ROS Statement are negative. Past Medical History: GERD/Reflux Additional Past Medical History / Comment(s): CYSTOCELE AND RECTOCELE History of Any Multi-Drug Resistant Organisms: None Reported Past Surgical History: Hysterectomy, Orthopedic Surgery, Tonsillectomy Additional Past Surgical History / Comment(s): ORIF LT ANKLE, SX TO REPAIR FX RT ARM. diverticultis abscess Past Anesthesia/Blood Transfusion Reactions: No Reported Reaction Past Psychological History: Depression Smoking Status: Current every day smoker Past Alcohol Use History: Daily Past Drug Use History: Marijuana Family Medical History: Cancer Physical Exam General: Appears in mild to moderate distress HEAD: Normal with no signs of head trauma. EYES: PERRLA, EOMI, conjunctiva normal, no discharge. ENT: Hearing grossly intact, normal oropharynx. RESPIRATORY: Clear breath sounds bilaterally. No wheezes, rales, or rhonchi. C/V: Regular rate and rhythm. S1 and S2 auscultated, no edema, peripheral pulses 2+ and intact throughout ABD: Abdomen soft, mildly distended. No guarding. No rebound tenderness. No peritoneal signs. EXT: Normal range of motion, no obvious deformity SKIN: Surgical drain site does appear slightly bruised however no obvious infectious process. No discharge. Is tender. Located over the posterior right buttock. NEURO: Alert and oriented x 4. Cranial nerves II-XII intact. No focal sensory or strength deficits. 59 year old female with complicated diverticulitis with abscess -NPO -IV fluids -Zosyn -IR consult for drainage of abscess -Pain and Nausea Control Liam Gallegos DO [facility] [phone]
[2024-11-21] MEDS: PIPERACILLIN-TAZOBACTAM 3.375 GM in SODIUM CHLORIDE 0.9% 100 ML IVPB SCH (23:41)
[2024-11-22] MEDS ORDERED: ZOLPIDEM 5 MG TAB PO PRN (00:56)
[2024-11-22] MEDS: MORPHINE SULFATE 2 MG/ML SYRINGE IVP PRN (02:01)
[2024-11-22] MEDS: NICOTINE 21MG/24HR PATCH TRANSDERM SCH (08:52)
[2024-11-22 09:30] LABS: Basophils # (A) 0.03 X 10*3/uL (0.00-0.10); Basophils % (A) 0.2 %; Eosinophils # (A) 0.03 X 10*3/uL (0.04-0.35); Eosinophils % (A) 0.2 %; HCT 34.6 % (37.2-46.3); HGB 11.2 g/dL (12.0-15.0); Lymphocytes # (A) 1.16 X 10*3/uL (0.90-5.00); Lymphocytes % (A) 9.2 %; MCH 31.5 pg (27.0-32.0); MCHC 32.4 g/dL (32.0-37.0); MCV 97.2 FL (80.0-97.0); Mean Platelet Volume 10.9 FL (9.5-12.2); Monocytes # (A) 1.47 X 10*3/uL (0.20-1.00); Monocytes % (A) 11.7 %; NRBC Per 100 WBC 0 X 10*3/uL (0.00-0.01); Neutrophils # (A) 9.81 X 10*3/uL (1.80-7.70); Neutrophils % (A) 77.9 %; Platelet Count 359 X 10*3/uL (140-440); RBC 3.56 X 10*6/uL (4.10-5.20)
[2024-11-22 09:43] LABS: ALT 14 U/L (8-44); AST 18 U/L (13-35); Albumin 2.9 g/dL (3.8-4.9); Albumin/Globulin Ratio 1.21 Ratio (1.60-3.17); Alkaline Phosphatase 108 U/L (41-126); BUN/Creat Ratio <8.75 Ratio (12.00-20.00); Blood Urea Nitrogen <3.5 mg/dL (9.0-27.0); Carbon Dioxide 25.1 mmol/L (21.6-31.8); Chloride 101 mmol/L (96-109); Globulin 2.4 g/dL (1.6-3.3); Glucose 86 mg/dL (70-110); Potassium 3.7 mmol/L (3.5-5.5); Sodium 136 mmol/L (135-145); Total Bilirubin 0.6 mg/dL (0.3-1.2); Total Protein 5.3 g/dL (6.2-8.2)
--- NOTE | 2024-11-22 11:11 | P.PN ---
Subjective Progress Note Date: 11/22/24 SURGICAL PROGRESS NOTE CHIEF COMPLAINT: Diverticulitis with abscess HISTORY OF PRESENT ILLNESS: Patient continues to complain of abdominal pain. She reports the pain had been in her back yesterday and is now moved more towards left lower quadrant. She does report she has diffuse pain as well. Denies any nausea or vomiting. She is having flatus. She did have a low-grade temp of 100.4 last night. White count has come down from 21.2-12. She is scheduled to be evaluated by IR service for possible drain placement. Last colonoscopy was in 2022 with evidence of colon polyps. PHYSICAL EXAM: VITAL SIGNS: Reviewed. GENERAL: Well-developed in no acute distress. ABDOMEN: Soft. Mildly distended. Tenderness palpation left lower quadrant. Diffuse tenderness also noted across the abdomen. No rebound or guarding. NEUROLOGIC: Alert and oriented. Cranial nerves II through XII grossly intact. ASSESSMENT: 1. Complicated diverticulitis with abscess PLAN: -IR consulted for drain placement -Keep patient n.p.o. -Continue IV antibiotics -Continue IV fluids -Continue pain management. Toradol added for pain control -Repeat CBC in a.m. Physician Feather Trimmer note has been reviewed by physician. Signing provider agrees with the documented findings, assessment, and plan of care. Attestation Patient seen and examined at bedside on 11/22/2024. Presented with chief complaint of recurrent abdominal pain. She is found to have diverticulitis with abscess. She did present this way and was transferred to [facility] a little over 1 week ago and did have IR drainage at the site. She states that during that admission they IR drain was pulled and no repeat CAT scan was performed and she was sent home on oral antibiotics. She returns with this pain and finding of abscess is noted. IR has been consulted for drain placement. Continue IV antibiotics and IV fluids at this time. Keep n.p.o. at this time. Further recommendations based on IR recommendations. I did discuss surgical options with the patient and at this point we will await IR as she would likely require ostomy and would prefer no ostomy. Skyler Adams, Objective - Vital Signs Vital signs: Vital Signs Temp 99.4 F 11/22/24 06:53 Pulse 79 11/22/24 06:53 Resp 18 11/22/24 06:53 BP 137/80 11/22/24 06:53 Pulse Ox 90 L 11/22/24 06:53 FiO2 Intake & Output 11/21/24 11/22/24 11/22/24 18:59 06:59 18:59 Weight 56.699 kg 56.699 kg Other: # Voids 2 - Labs CBC & Chem 7: 11/23/24 05:51 11/22/24 05:58 Labs: Abnormal Lab Results - Last 24 Hours (Table) 11/21/24 11/21/24 11/21/24 Range/Units 14:51 14:51 16:38 WBC 21.2 H (3.8-10.6) k/uL RBC (4.10-5.20) X 10*6/uL Hgb (12.0-15.0) g/dL Hct (37.2-46.3) % MCV 100.2 H (80.0-100.0) fL RDW 16.3 H (11.5-15.5) % Plt Count 463 H (150-450) k/uL Immature Gran # (0.00-0.04) X 10*3/uL Neutrophils # 17.9 H (1.3-7.7) k/uL Monocytes # 1.1 H (0-1.0) k/uL Eosinophils # (0.04-0.35) X 10*3/uL Sodium 131 L (137-145) mmol/L Chloride 94 L (98-107) mmol/L BUN (9.0-27.0) mg/dL Creatinine 0.38 L (0.52-1.04) mg/dL BUN/Creatinine Ratio (12.00-20.00) Ratio Calcium (8.7-10.3) mg/dL Alkaline Phosphatase 131 H (38-126) U/L Total Protein (6.2-8.2) g/dL Albumin (3.8-4.9) g/dL Albumin/Globulin Ratio (1.60-3.17) Ratio Urine Appearance Cloudy H (Clear) Urine Protein 1+ H (Negative) Urine Ketones 1+ H (Negative) Urine Blood Trace H (Negative) Urine Bilirubin 1+ H (Negative) Ur Leukocyte Esterase Small H (Negative) Urine RBC 10 H (0-5) /hpf Urine WBC 6 H (0-5) /hpf Ur Squamous Epith Cells 9 H (0-4) /hpf Hyaline Casts 7 H (0-2) /lpf Urine Mucus Many H (None) /hpf 11/22/24 11/22/24 Range/Units 05:58 05:58 WBC 12.60 H (3.8-10.6) k/uL RBC 3.56 L (4.10-5.20) X 10*6/uL Hgb 11.2 L (12.0-15.0) g/dL Hct 34.6 L (37.2-46.3) % MCV 97.2 H (80.0-100.0) fL RDW 17.0 H (11.5-15.5) % Plt Count (150-450) k/uL Immature Gran # 0.10 H (0.00-0.04) X 10*3/uL Neutrophils # 9.81 H (1.3-7.7) k/uL Monocytes # 1.47 H (0-1.0) k/uL Eosinophils # 0.03 L (0.04-0.35) X 10*3/uL Sodium (137-145) mmol/L Chloride (98-107) mmol/L BUN <3.5 L (9.0-27.0) mg/dL Creatinine 0.4 L (0.52-1.04) mg/dL BUN/Creatinine Ratio <8.75 L (12.00-20.00) Ratio Calcium 8.0 L (8.7-10.3) mg/dL Alkaline Phosphatase (38-126) U/L Total Protein 5.3 L (6.2-8.2) g/dL Albumin 2.9 L (3.8-4.9) g/dL Albumin/Globulin Ratio 1.21 L (1.60-3.17) Ratio Urine Appearance (Clear) Urine Protein (Negative) Urine Ketones (Negative) Urine Blood (Negative) Urine Bilirubin (Negative) Ur Leukocyte Esterase (Negative) Urine RBC (0-5) /hpf Urine WBC (0-5) /hpf Ur Squamous Epith Cells (0-4) /hpf Hyaline Casts (0-2) /lpf Urine Mucus (None) /hpf
[2024-11-22] MEDS: KETOROLAC 15 MG/ML 1 ML VIAL IVP SCH (11:57)
[2024-11-22] MEDS: ONDANSETRON 4 MG/2 ML VIAL IVP PRN ×2 (11:58→18:37)
[2024-11-22] MEDS: IPRATROPIUM-ALBUTEROL 3 ML NEB INHALATION SCH (12:51)
[2024-11-22] MEDS: ACETAMINOPHEN TAB 325 MG TAB PO PRN (20:40)
--- NOTE | 2024-11-22 21:11 | HP ---
HISTORY AND PHYSICAL HISTORY OF PRESENT ILLNESS: An white female, abdominal pain, distention, but diverticular abscess diagnosed at another facility. IR was unavailable at that time and transferred to [facility]. They attempted IR drainage of this abscess down there and sent home on oral antibiotics. She has worsening abdominal pain and fevers and chills, abdominal distention. She came back to the hospital. The same abscess is still there at 6.3 cm. REVIEW OF SYSTEMS: A 14-point review of systems otherwise negative. PAST MEDICAL HISTORY: COPD, GERD, nicotine addiction. PAST SURGICAL HISTORY: She has had tonsillectomy. PHYSICAL EXAMINATION: VITAL SIGNS: Reviewed. CARDIOVASCULAR: S1 and S2. LUNGS: Transmitted upper airway sounds. HEMATOLOGY: Negative for Homans. PSYCHIATRIC: Fair mood and affect. GI: Soft, diffuse tenderness, greatest in left lower quadrant. NEUROLOGIC: Cranial nerves intact. PSYCHIATRIC: Fair mood and affect. She has a wound over the posterior right buttock, which does not appear to be infected. We will give her IV fluids, IV antibiotics. Wait for Dr. Oconnell's surgical consult. Possible surgery versus IR drainage will be needed of the abscess and prior PICC line for IV antibiotics long-term. She has failed other treatments. Prognosis is guarded. Please see further orders. MMODL / IJN: [id number] /
--- NOTE | 2024-11-22 22:11 | P.CONS ---
History of Present Illness - Reason for Consult Consult date: 11/22/24 Perforated diverticulitis with abscess Requesting physician: Jesus Menchaca - Chief Complaint Abdominal pain nausea x 2 days - History of Present Illness Patient is a 59-year-old female with a past medical history significant for reflux depression recently evaluated and treated at [facility] for perforated diverticulitis with an abscess status post CT- guided drainage apparently the culture were negative she was treated with IV breath with subsequent discharged on a 5-day course of oral Avelox with the patient has completed subsequently patient started having increasing abdominal pain and also complaining of lower back pain patient describing the pain to be sharp throbbing moderate to severe intensity without any radiation patient did have decreased appetite and nausea but no vomiting denies having any constipation did have some loose stools denies any blood or mucus in the stools and no high-grade fever patient was evaluated by the PCP and was advised to go to the hospital on arrival to the ER the patient did have low-grade fever of 100.4 degrees for night patient was nontachycardic hypotensive or hypoxic she did have white count of 21.2 with a left shift creatinine has been normal electrolytes are normal liver enzymes normal urine is mildly positive patient did have a CT of abdominal pelvis we did shows a marginal decrease in size of the pelvic abscess from prior examination now measuring up to 6.2 cm inflammatory changes with the wall thickening involving the sigmoid colon with diverticula patient was started on Zosyn infectious disease was consulted for further management of antibiotic therapy Review of Systems Positive point and negatives has been mentioned in the HPI, complete review of systems was performed and all other systems are negative Past Medical History Past Medical History: GERD/Reflux Additional Past Medical History / Comment(s): CYSTOCELE AND RECTOCELE History of Any Multi-Drug Resistant Organisms: None Reported Past Surgical History: Hysterectomy, Orthopedic Surgery, Tonsillectomy Additional Past Surgical History / Comment(s): ORIF LT ANKLE, SX TO REPAIR FX RT ARM. diverticultis abscess Past Anesthesia/Blood Transfusion Reactions: No Reported Reaction Past Psychological History: Depression Smoking Status: Current every day smoker Past Alcohol Use History: Daily Additional Past Alcohol Use History / Comment(s): 12 drinks in a week not every day Past Drug Use History: Marijuana - Past Family History Mother Family Medical History: Cancer Medications and Allergies Home Medications Medication Instructions Recorded Confirmed Type Aspirin EC [Ecotrin Low Dose] 81 mg PO DAILY 11/12/24 11/21/24 History Ibuprofen [Motrin] 800 mg PO BID 11/12/24 11/21/24 History Metoprolol Succinate (ER) [Toprol 50 mg PO DAILY 11/12/24 11/21/24 History Xl] PARoxetine [Paxil] 20 mg PO DAILY 11/12/24 11/21/24 History Allergies Allergy/AdvReac Type Severity Reaction Status Date / Time No Known Allergies Allergy Verified 11/21/24 17:00 Physical Exam Vitals: Vital Signs Temp Pulse Pulse Resp BP BP Pulse Ox 11/22/24 06:53 99.4 F 79 18 137/80 90 L 11/22/24 00:50 99.2 F 73 18 113/69 92 L 11/21/24 22:00 98.5 F 66 18 111/66 93 L 11/21/24 21:35 98.7 F 73 19 103/63 93 L 11/21/24 19:47 99.9 F H 11/21/24 18:16 100.4 F H 87 19 102/69 94 L 11/21/24 16:16 99.4 F 83 19 111/71 94 L 11/21/24 14:34 98.5 F 91 20 113/83 97 Intake and Output 11/21/24 11/22/24 11/22/24 22:59 06:59 14:59 Other: # Voids 2 Weight 56.699 kg GENERAL DESCRIPTION: Middle-age female lying in bed, no distress. No tachypnea or accessory muscle of respiration use. HEENT: Shows Pallor , no scleral icterus. Oral mucous membrane is dry. No pharyngeal erythema or thrush NECK: Trachea central, no thyromegaly. LUNGS: Unlabored breathing. Clear to auscultation anteriorly. 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 HEART: S1, S2, regular rate and rhythm. No loud murmur ABDOMEN: Soft, left lower abdominal tenderness , no guarding or rigidity EXTREMITIES: No edema of feet. SKIN: No rash, no masses palpable. NEUROLOGICAL: The patient is awake, alert, oriented x3, mood and affect normal. Results CBC & Chem 7: 11/22/24 05:58 11/22/24 05:58 Labs: Abnormal Lab Results - Last 24 Hours (Table) 11/21/24 11/21/24 11/21/24 Range/Units 14:51 14:51 16:38 WBC 21.2 H (3.8-10.6) k/uL RBC (4.10-5.20) X 10*6/uL Hgb (12.0-15.0) g/dL Hct (37.2-46.3) % MCV 100.2 H (80.0-100.0) fL RDW 16.3 H (11.5-15.5) % Plt Count 463 H (150-450) k/uL Immature Gran # (0.00-0.04) X 10*3/uL Neutrophils # 17.9 H (1.3-7.7) k/uL Monocytes # 1.1 H (0-1.0) k/uL Eosinophils # (0.04-0.35) X 10*3/uL Sodium 131 L (137-145) mmol/L Chloride 94 L (98-107) mmol/L BUN (9.0-27.0) mg/dL Creatinine 0.38 L (0.52-1.04) mg/dL BUN/Creatinine Ratio (12.00-20.00) Ratio Calcium (8.7-10.3) mg/dL Alkaline Phosphatase 131 H (38-126) U/L Total Protein (6.2-8.2) g/dL Albumin (3.8-4.9) g/dL Albumin/Globulin Ratio (1.60-3.17) Ratio Urine Appearance Cloudy H (Clear) Urine Protein 1+ H (Negative) Urine Ketones 1+ H (Negative) Urine Blood Trace H (Negative) Urine Bilirubin 1+ H (Negative) Ur Leukocyte Esterase Small H (Negative) Urine RBC 10 H (0-5) /hpf Urine WBC 6 H (0-5) /hpf Ur Squamous Epith Cells 9 H (0-4) /hpf Hyaline Casts 7 H (0-2) /lpf Urine Mucus Many H (None) /hpf 11/22/24 11/22/24 Range/Units 05:58 05:58 WBC 12.60 H (3.8-10.6) k/uL RBC 3.56 L (4.10-5.20) X 10*6/uL Hgb 11.2 L (12.0-15.0) g/dL Hct 34.6 L (37.2-46.3) % MCV 97.2 H (80.0-100.0) fL RDW 17.0 H (11.5-15.5) % Plt Count (150-450) k/uL Immature Gran # 0.10 H (0.00-0.04) X 10*3/uL Neutrophils # 9.81 H (1.3-7.7) k/uL Monocytes # 1.47 H (0-1.0) k/uL Eosinophils # 0.03 L (0.04-0.35) X 10*3/uL Sodium (137-145) mmol/L Chloride (98-107) mmol/L BUN <3.5 L (9.0-27.0) mg/dL Creatinine 0.4 L (0.52-1.04) mg/dL BUN/Creatinine Ratio <8.75 L (12.00-20.00) Ratio Calcium 8.0 L (8.7-10.3) mg/dL Alkaline Phosphatase (38-126) U/L Total Protein 5.3 L (6.2-8.2) g/dL Albumin 2.9 L (3.8-4.9) g/dL Albumin/Globulin Ratio 1.21 L (1.60-3.17) Ratio Urine Appearance (Clear) Urine Protein (Negative) Urine Ketones (Negative) Urine Blood (Negative) Urine Bilirubin (Negative) Ur Leukocyte Esterase (Negative) Urine RBC (0-5) /hpf Urine WBC (0-5) /hpf Ur Squamous Epith Cells (0-4) /hpf Hyaline Casts (0-2) /lpf Urine Mucus (None) /hpf Assessment and Plan (1) Sepsis Current Visit: Yes Status: Acute Code(s): A41.9 - SEPSIS, UNSPECIFIED ORGANISM SNOMED Code(s): 78802276 (2) Intra-abdominal abscess Current Visit: Yes Status: Acute Code(s): K65.1 - PERITONEAL ABSCESS SNOMED Code(s): 59252149 (3) Diverticulitis Current Visit: Yes Status: Acute Code(s): K57.92 - DVTRCLI OF INTEST, PART UNSP, W/O PERF OR ABSCESS W/O BLEED SNOMED Code(s): 721092133 Plan: 1-patient presented to hospital with sepsis in this patient who did have fever elevated white count source is perforated diverticulitis with intra-abdominal abscess that apparently did not respond very well to the treatment provided at [facility] and failing outpatient oral antibiotic therapy. 2-we will wait for the IR drainage of the sepsis and fluid should be sent for the culture. 3-Zosyn 3.375 grams every 8 hours should provide adequate empiric antibiotic coverage and the patient may need IV antibiotic on discharge as she did fail oral antibiotic therapy this was explained to the patient and the We will follow on clinical condition and cultures to further adjust medication if needed Thank you for this consultation we will follow the patient along with you Dictation was produced using [employer] dictation software. please excuse any grammatical, word or spelling errors. Time with Patient: Greater than 30
[2024-11-23 06:49] LABS: Anisocytosis Slight; Basophils % (A) 0 %; Eosinophils # (A) 0.1 k/uL (0-0.7); Eosinophils % (A) 0 %; HCT 35.3 % (34.0-46.0); HGB 10.7 gm/dL (11.4-16.0); Hypochromasia Moderate; Lymphocytes % (A) 7 %; MCH 30.6 pg (25.0-35.0); MCHC 30.3 g/dL (31.0-37.0); Macrocytosis Slight; Mean Platelet Volume 8.1; Monocytes % (A) 7 %; Neutrophils # (A) 11.6 k/uL (1.3-7.7); Neutrophils % (A) 83 %; Platelet Count 375 k/uL (150-450); RDW 16.2 % (11.5-15.5); WBC 13.9 k/uL (3.8-10.6)
[2024-11-23] MEDS: PARoxetine 20 MG TAB PO SCH (08:08)
[2024-11-23] MEDS: METOPROLOL SUCCINATE (ER) 50 MG TAB.ER.24H PO SCH (08:08)
--- NOTE | 2024-11-23 12:49 | P.PN ---
Subjective Progress Note Date: 11/23/24 SURGICAL PROGRESS NOTE CHIEF COMPLAINT: Diverticulitis with abscess HISTORY OF PRESENT ILLNESS: Patient continues to complain of worsening abdominal pain. She reports that she is not feeling any better. She reports feeling more bloated. She did have a low-grade temp of 100.6. Her white count did go up from 12-13.9. She was evaluated by IR service and they were unable to place and drain due to bowel being in the way of the abscess. PHYSICAL EXAM: VITAL SIGNS: Reviewed. GENERAL: Well-developed in no acute distress. ABDOMEN: Soft. distended. Tenderness palpation mostly left lower quadrant. Diffuse tenderness also noted across the abdomen. No rebound or guarding. NEUROLOGIC: Alert and oriented. Cranial nerves II through XII grossly intact. ASSESSMENT: 1. Complicated diverticulitis with abscess PLAN: -Patient seen and examined by Dr. Gallegos and scheduled for Exploratory laparotomy with Cox's procedure and abdominal washout today -Keep patient n.p.o. -Continue IV antibiotics -Continue IV fluids -Continue pain management Physician Community Organization Worker note has been reviewed by physician. Signing provider agrees with the documented findings, assessment, and plan of care. Objective - Vital Signs Vital signs: Vital Signs Temp 99.0 F 11/23/24 07:05 Pulse 80 11/23/24 09:41 Resp 20 11/23/24 07:05 BP 170/90 11/23/24 07:05 Pulse Ox 93 L 11/23/24 07:05 FiO2 Intake & Output 11/22/24 11/23/24 11/23/24 18:59 06:59 18:59 Other: Voiding Method Toilet # Voids 3 2 1 - Labs CBC & Chem 7: 11/23/24 05:51 11/22/24 05:58 Labs: Abnormal Lab Results - Last 24 Hours (Table) 11/23/24 Range/Units 05:51 WBC 13.9 H (3.8-10.6) k/uL RBC 3.50 L (3.80-5.40) m/uL Hgb 10.7 L (11.4-16.0) gm/dL MCV 101.0 H (80.0-100.0) fL MCHC 30.3 L (31.0-37.0) g/dL RDW 16.2 H (11.5-15.5) % Neutrophils # 11.6 H (1.3-7.7) k/uL Microbiology - Last 24 Hours (Table) 11/21/24 16:14 Blood Culture - Preliminary Blood
--- NOTE | 2024-11-23 14:55 | P.PN ---
Subjective Progress Note Date: 11/23/24 Principal diagnosis: Reason for follow-up is perforated diverticulitis with intra-abdominal abscess Patient is a 59-year-old female with a past medical history significa nt for reflux depression recently evaluated and treated at [facility] for perforated diverticulitis with an abscess status post CT-guided drainage, now presenting with abdominal pain and has been diagnosed with intra- abdominal abscess perforated diverticulitis. On today's evaluation that is 11/23/2024,the patient remains to be afebrile, patient is on room air not requiring supplemental oxygen and denies any shortness of breath no chest pain or cough.Patient has been complaining of n ausea but no vomiting circumventing abdominal pain and distention and did have few loose stool. Patient white count is 13.9 creatinine 0.4 blood cultures are pending Objective - Vital Signs Vital signs: Vital Signs Temp 99.0 F 11/23/24 07:05 Pulse 80 11/23/24 09:41 Resp 20 11/23/24 07:05 BP 170/90 11/23/24 07:05 Pulse Ox 93 L 11/23/24 07:05 FiO2 Intake & Output 11/22/24 11/23/24 11/23/24 18:59 06:59 18:59 Other: Voiding Method Toilet # Voids 3 2 1 - Exam GENERAL DESCRIPTION: Middle-age female lying in bed in no distress RESPIRATORY SYSTEM: Unlabored breathing , decreased breath sounds at bases HEART: S1 S2 regular rate and rhythm , ABDOMEN: Soft , mild tenderness EXTREMITIES: No edema feet - Labs CBC & Chem 7: 11/23/24 05:51 11/22/24 05:58 Labs: Abnormal Lab Results - Last 24 Hours (Table) 11/23/24 Range/Units 05:51 WBC 13.9 H (3.8-10.6) k/uL RBC 3.50 L (3.80-5.40) m/uL Hgb 10.7 L (11.4-16.0) gm/dL MCV 101.0 H (80.0-100.0) fL MCHC 30.3 L (31.0-37.0) g/dL RDW 16.2 H (11.5-15.5) % Neutrophils # 11.6 H (1.3-7.7) k/uL Microbiology - Last 24 Hours (Table) 11/21/24 16:14 Blood Culture - Preliminary Blood Assessment and Plan (1) Sepsis Current Visit: Yes Status: Acute Code(s): A41.9 - SEPSIS, UNSPECIFIED ORGANISM SNOMED Code(s): 99354681 (2) Intra-abdominal abscess Current Visit: Yes Status: Acute Code(s): K65.1 - PERITONEAL ABSCESS SNOMED Code(s): 03946404 (3) Diverticulitis Current Visit: Yes Status: Acute Code(s): K57.92 - DVTRCLI OF INTEST, PART UNSP, W/O PERF OR ABSCESS W/O BLEED SNOMED Code(s): 644512987 Plan: 1-patient presented to hospital with sepsis in this patient who did have fever elevated white count source is perforated diverticulitis with intra-abdominal abscess that apparently did not respond very well to the treatment provided at [facility] and failing outpatient oral antibiotic therapy. 2-apparently IR was not able to drain the abscess surgery is planning for abdominal washout and colostomy is talking about transfer to [facility] 3-patient is covered with Zosyn 3.375 grams every 8 hours if the abscess is drained, fluid should be sent for culture Multiple question concern answered Dictation was produced using [employer] dictation software. please excuse any grammatical, word or spelling errors. Time with Patient: Less than 30
[2024-11-23] MEDS: IV FLUID CONTINUATION 1,000 ML IV ONE ×2 (17:12→17:16)
[2024-11-23] MEDS ORDERED: KETAMINE HCL IN 0.9 % NACL 50 MG/5 ML SYRINGE ONE (18:14)
[2024-11-23] MEDS ORDERED: NEOSTIGMINE 1 MG/ML 10 ML VIAL ONE (18:14)
[2024-11-23] MEDS ORDERED: ONDANSETRON 4 MG/2 ML VIAL ONE (18:14)
[2024-11-23] MEDS ORDERED: fentaNYL (PF) 50 MCG/ML 2 ML AMP ONE (18:14)
[2024-11-23] MEDS ORDERED: MIDAZOLAM 2 MG/2 ML VIAL ONE (18:14)
[2024-11-23] MEDS ORDERED: PHENYLEPHRINE-0.9% NACL SYG 1,000 MCG/10 ML SYRINGE ONE (18:14)
[2024-11-23] MEDS ORDERED: HEPARIN SODIUM,PORCINE 5,000 UNIT/ML 1 ML VIAL ONE (18:14)
[2024-11-23] MEDS ORDERED: ROCURONIUM 10 MG/ML (5 ML VIAL) IV ONE (18:14)
[2024-11-23] MEDS ORDERED: LABETALOL 5 MG/ML VIAL MDV ONE (18:14)
[2024-11-23] MEDS ORDERED: SUCCINYLCHOLINE CHLORIDE 200 MG/10 ML VIAL IV ONE (18:14)
[2024-11-23] MEDS ORDERED: PROPOFOL 10 MG/ML 20 ML VIAL IV ONE (18:14)
[2024-11-23] MEDS ORDERED: LIDOCAINE 1% INJ 10MG/ML (20 ML MDV) ONE (18:14)
[2024-11-23] MEDS ORDERED: GLYCOPYRROLATE 0.2 MG/ML 2 ML VIAL ONE (18:14)
[2024-11-23] MEDS: SODIUM CHLORIDE 0.9% 50 ML with ceFAZolin 2,000 MG IV ONE (18:20)
[2024-11-23] MEDS: LACTATED RINGERS 1,000 ML IV ONE ×2 (19:27→21:00)
[2024-11-23] MEDS ORDERED: HYDROmorphone 1 MG/ML 1 ML SYRINGE IVP PRN (21:26)
[2024-11-23] MEDS ORDERED: ONDANSETRON 4 MG/2 ML VIAL IVP PRN (21:27)
--- NOTE | 2024-11-23 22:55 | P.OP ---
Date of Procedure: 11/23/24 Preoperative Diagnosis: 1. Complicated Diverticulitis Postoperative Diagnosis: 1. Complicated Diverticulitis 2. Intraabdominal Abscess 3. Small Bowel Obstruction Procedure(s) Performed: 1. Exploratory Laparotomy 2. Sigmoidectomy with End Colostomy 3. Ileocecectomy Anesthesia: SALENA Surgeon: Liam Gallegos Estimated Blood Loss (ml): 100 Pathology: other (Small Bowel , Cecum, and Sigmoid Colon) Condition: stable Disposition: PACU Description of Procedure: Patient was brought to the operating suite placed in the supine position. Anesthesia was given and endotracheal intubation was performed. A Martinez catheter was placed. The abdomen was prepped and draped in usual sterile fa shion. A timeout was performed before beginning the procedure. Midline incision was made with a 10 blade. Bovie electrocautery was used to dissect through the subcutaneous fat and through the fascia and into the peritoneal cavity safely. There was free fluid and dilated small bowel immediately noted. I began the procedure by running the small bowel from the ligament of Treitz to the cecum. There was a clear transition point in the distal ileum as the distal ileum and the cecum were encased in an intra-abdominal fluid collection. This likely was the abscess from the patient diverticulitis which was now causing a bowel obstruction. There was also noted to be a phlegmon in the area. I made the decision to perform an ileocecectomy as I believe the patient would have issues with future bowel obstruction. A mesenteric window was made with Bovie electrocautery and the distal ileum and just distal to the cecum. An Endo CATALINA 60 mm purple staple load was used to divide the distal ileum and just proximal to the cecum. A LigaSure was used to take down the mesentery of the ileum and cecum. The ileocecal specimen was passed off. A [id number] functional end-to-end ileocecal anastomosis was performed using multiple firings of the Endo CATALINA 60 mm stapler load. A crotch stitch was placed. The mesenteric defect of the ileocecal anastomosis was closed with interrupted 2-0 Vicryl suture. Next I turned my attention to the diverticulitis involving the distal sigmoid colon and its associated abscess. I began by mobilizing the white line of Toldt and the lateral attachment of the sigmoid colon. I then made a mesenteric window in the proximal descending colon and at the rectosigmoid junction. I divided the rectosigmoid junction with two 60 mm black staple load. I divided the descending colon with 60 mm purple stapler loads. I then took down the mesentery of the sigmoid colon with a LigaSure device. Sigmoid colon specimen was passed off. I then mobilized more attachments of the descending colon. Once I felt the descending colon was mobile enough I marked a spot on the left side of the anterior abdominal wall for my ostomy. Bovie electrocautery was used dissect the skin subcutaneous fat divided the muscle to create a space for the colostomy. The descending colon was then externalized through the defect created in the left abdominal wall. I then turned my attention to the pelvis and the rest of the abdomen and I copiously irrigated the abdomen with saline. I then ran the small bowel and the colon looking for any other abnormalities of which there were none. I placed a 19 Persian JANETH drain in the pelvis and sutured in place with 2-0 nylon. I then performed a hemostatic timeout and there was no active bleeding identified at this time. I did apply some hemostatic powder in the pelvis. I have then closed the fascia with two #1 looped PDS sutures. Skin alda used to approximate the skin. I then matured my colostomy with 2-0 Vicryl suture. Sterile dressing and colostomy bag were applied. This concluded the procedure. Anesthesia was reversed and the patient was extubated and transferred to the PACU in stable condition. I did update patient's and daughter the PACU after surgery
[2024-11-23] MEDS: HYDROmorphone 1 MG/ML 1 ML SYRINGE IVP PRN (22:58)
[2024-11-24] MEDS ORDERED: KETOROLAC 15 MG/ML 1 ML VIAL IVP SCH
[2024-11-24 08:26] LABS: HCT 36.9 % (37.2-46.3); HGB 12.1 g/dL (12.0-15.0); MCH 31.8 pg (27.0-32.0); MCHC 32.8 g/dL (32.0-37.0); MCV 97.1 FL (80.0-97.0); Mean Platelet Volume 11.1 FL (9.5-12.2); NRBC Per 100 WBC 0 X 10*3/uL (0.00-0.01); Platelet Count 440 X 10*3/uL (140-440); RDW 16.3 % (11.5-14.5); WBC 17.49 X 10*3/uL (4.50-10.00)
[2024-11-24 08:44] LABS: BUN/Creat Ratio 12.25 Ratio (12.00-20.00); Blood Urea Nitrogen 4.9 mg/dL (9.0-27.0); Calcium 7.9 mg/dL (8.7-10.3); Carbon Dioxide 21.4 mmol/L (21.6-31.8); Chloride 99 mmol/L (96-109); Glucose 107 mg/dL (70-110); Potassium 3.8 mmol/L (3.5-5.5); Sodium 136 mmol/L (135-145)
[2024-11-24 09:22] LABS: Basophils # (A) 0.03 X 10*3/uL (0.00-0.10); Basophils % (A) 0.2 %; Eosinophils # (A) 0.03 X 10*3/uL (0.04-0.35); Eosinophils % (A) 0.2 %; Lymphocytes # (A) 0.86 X 10*3/uL (0.90-5.00); Lymphocytes % (A) 4.9 %; Monocytes # (A) 1.76 X 10*3/uL (0.20-1.00); Monocytes % (A) 10.1 %; Neutrophils # (A) 14.72 X 10*3/uL (1.80-7.70); Neutrophils % (A) 84.1 %
--- NOTE | 2024-11-24 11:50 | P.PN ---
Subjective Progress Note Date: 11/24/24 SURGICAL PROGRESS NOTE CHIEF COMPLAINT: Diverticulitis with abscess HISTORY OF PRESENT ILLNESS: Patient is postop day #1 status post exploratory laparotomy, sigmoidectomy with end colostomy and ileocecectomy for complicated diverticulitis, intra-abdominal abscesses and small bowel obstruction. Patient reports her pain is better since surgery. Her current pain is controlled with pain medication. She does report a small amount of nausea. No output from her ostomy. JANETH drain 130 mL serosanguineous output through the night. Afebrile. WBC is up from 13.9-17.49 Hgb 12.1 creatinine 0.4. Urine output adequate PHYSICAL EXAM: VITAL SIGNS: Reviewed. GENERAL: Well-developed in no acute distress. ABDOMEN: Soft. Mildly distended. Tenderness at incision site. Incisional dressing small amount of dried blood noted. Ostomy with beefy red stoma. No output noted. NEUROLOGIC: Alert and oriented. Cranial nerves II through XII grossly intact. ASSESSMENT: 1. Complicated diverticulitis with intra-abdominal abscess 2. Small bowel obstruction PLAN: -Keep patient n.p.o. -Continue pain management -Continue IV fluids -Continue antibiotics -Incentive spirometer ordered -Encourage patient increase activity level -Repeat CBC in a.m. -GI prophylaxis Pepcid and DVT prophylaxis subcu heparin Physician Lead Customer Service Representative note has been reviewed by physician. Signing provider agrees with the documented findings, assessment, and plan of care. Objective - Vital Signs Vital signs: Vital Signs Temp 98.4 F 11/24/24 06:52 Pulse 102 H 11/24/24 06:52 Resp 20 11/24/24 06:52 BP 102/68 11/24/24 06:52 Pulse Ox 98 11/24/24 06:52 FiO2 Intake & Output 11/23/24 11/24/24 11/24/24 18:59 06:59 18:59 Intake Total 950 1200 Output Total 1275 Balance 950 -75 Intake: IV 950 1200 Output: Drainage 125 Right Lower Abdomen 125 Urine 1050 Estimated Blood Loss 100 Other: Voiding Method Indwelling Catheter Indwelling Catheter # Voids 2 - Labs CBC & Chem 7: 11/24/24 05:30 11/24/24 05:30 Labs: Abnormal Lab Results - Last 24 Hours (Table) 11/24/24 11/24/24 Range/Units 05:30 05:30 WBC 17.49 H (4.50-10.00) X 10*3/uL RBC 3.80 L (4.10-5.20) X 10*6/uL Hct 36.9 L (37.2-46.3) % MCV 97.1 H (80.0-97.0) FL RDW 16.3 H (11.5-14.5) % Immature Gran # 0.09 H (0.00-0.04) X 10*3/uL Neutrophils # 14.72 H (1.80-7.70) X 10*3/uL Lymphocytes # 0.86 L (0.90-5.00) X 10*3/uL Monocytes # 1.76 H (0.20-1.00) X 10*3/uL Eosinophils # 0.03 L (0.04-0.35) X 10*3/uL Carbon Dioxide 21.4 L (21.6-31.8) mmol/L Anion Gap 15.60 H (4.00-12.00) mmol/L BUN 4.9 L (9.0-27.0) mg/dL Creatinine 0.4 L (0.6-1.5) mg/dL Calcium 7.9 L (8.7-10.3) mg/dL Microbiology - Last 24 Hours (Table) 11/21/24 16:14 Blood Culture - Preliminary Blood
[2024-11-24] MEDS: HYDROmorphone 1 MG/ML 1 ML SYRINGE IVP PRN (13:23)
[2024-11-24] MEDS: FAMOTIDINE 20 MG/2 ML VIAL IV SCH (14:11)
--- NOTE | 2024-11-24 15:24 | P.PN ---
Subjective Progress Note Date: 11/24/24 Principal diagnosis: Reason for follow-up is perforated diverticulitis with intra-abdominal abscess Patient is a 59-year-old female with a past medical history significa nt for reflux depression recently evaluated and treated at [facility] for perforated diverticulitis with an abscess status post CT-guided drainage, now presenting with abdominal pain and has been diagnosed with intra- abdominal abscess perforated diverticulitis.Patient is status post Exploratory Laparotomy, Sigmoidectomy with End Colostomy and ileocecectomy completed on 11/23/2024 for perforated diverticulitis with intra-abdominal abscess On today's evaluation that is 11/24/2024, the patient did have resolution of her fever and is afebrile today she is currently breathing comfortably denies current oxygen denies any chest pain shortness of breath or cough abdominal pain is uncontrolled with the pain medication no vomiting or diarrhea. The patient white count is 17.49, creatinine 0.4 blood culture negative from the OR culture done Objective - Vital Signs Vital signs: Vital Signs Temp 98.4 F 11/24/24 06:52 Pulse 102 H 11/24/24 06:52 Resp 20 11/24/24 06:52 BP 102/68 11/24/24 06:52 Pulse Ox 98 11/24/24 06:52 FiO2 Intake & Output 11/23/24 11/24/24 11/24/24 18:59 06:59 18:59 Intake Total 950 1200 Output Total 1275 Balance 950 -75 Intake: IV 950 1200 Output: Drainage 125 Right Lower Abdomen 125 Urine 1050 Estimated Blood Loss 100 Other: Voiding Method Indwelling Catheter Indwelling Catheter # Voids 2 - Exam GENERAL DESCRIPTION: Middle-age female lying in bed in no distress RESPIRATORY SYSTEM: Unlabored breathing , decreased breath sounds at bases HEART: S1 S2 regular rate and rhythm , ABDOMEN: Soft , mild tenderness EXTREMITIES: No edema feet - Labs CBC & Chem 7: 11/24/24 05:30 11/24/24 05:30 Labs: Abnormal Lab Results - Last 24 Hours (Table) 11/24/24 11/24/24 Range/Units 05:30 05:30 WBC 17.49 H (4.50-10.00) X 10*3/uL RBC 3.80 L (4.10-5.20) X 10*6/uL Hct 36.9 L (37.2-46.3) % MCV 97.1 H (80.0-97.0) FL RDW 16.3 H (11.5-14.5) % Immature Gran # 0.09 H (0.00-0.04) X 10*3/uL Neutrophils # 14.72 H (1.80-7.70) X 10*3/uL Lymphocytes # 0.86 L (0.90-5.00) X 10*3/uL Monocytes # 1.76 H (0.20-1.00) X 10*3/uL Eosinophils # 0.03 L (0.04-0.35) X 10*3/uL Carbon Dioxide 21.4 L (21.6-31.8) mmol/L Anion Gap 15.60 H (4.00-12.00) mmol/L BUN 4.9 L (9.0-27.0) mg/dL Creatinine 0.4 L (0.6-1.5) mg/dL Calcium 7.9 L (8.7-10.3) mg/dL Microbiology - Last 24 Hours (Table) 11/21/24 16:14 Blood Culture - Preliminary Blood Assessment and Plan (1) Sepsis Current Visit: Yes Status: Acute Code(s): A41.9 - SEPSIS, UNSPECIFIED ORGANISM SNOMED Code(s): 18719109 (2) Intra-abdominal abscess Current Visit: Yes Status: Acute Code(s): K65.1 - PERITONEAL ABSCESS SNOMED Code(s): 40726118 (3) Diverticulitis Current Visit: Yes Status: Acute Code(s): K57.92 - DVTRCLI OF INTEST, PART UNSP, W/O PERF OR ABSCESS W/O BLEED SNOMED Code(s): 497001054 Plan: 1-patient presented to hospital with sepsis in this patient who did have fever elevated white count source is perforated diverticulitis with intra-abdominal abscess that apparently did not respond very well to the treatment provided at [facility] and failing outpatient oral antibiotic therapy. 2-apparently IR was not able to drain the abscess patient is status post Sigmoidectomy with End Colostomy and ileocecectomy completed on 12/03/2024 for perforated diverticulitis with an abscess but no cultures were done 3-patient is covered with Zosyn 3.375 grams every 8 hours slight worsening of white count possibly reactive postsurgery will be monitored closely Dictation was produced using App[employer] dictation software. please excuse any grammatical, word or spelling errors. Time with Patient: Less than 30
[2024-11-24 15:53] VITALS: BMI 21.4
--- NOTE | 2024-11-24 18:47 | P.PN ---
Subjective Progress Note Date: 11/24/24 Principal diagnosis: Complicated diverticulitis with intra-abdominal abscess Sepsis due to intra-abdominal process Small bowel obstruction Status post exploratory laparotomy on November 23 with sigmoidectomy and end colostomy and ileocecectomy Leukocytosis History of diverticulitis November 24, 2024, patient seen evaluate examined, she is n.p.o. has abdominal drain, colostomy patient however is on room air oxygen saturation 97% hemodynamic status stable with blood pressure 116/71, heart rate 105, low-grade temperature of 99 is present, labs from today reviewed WBC count is 17.49 hemoglobin of 812/36 platelet count of 440, labs reviewed BUN/creatinine 4.9/0.4, chemistry otherwise fairly within normal limit. Patient is kept n.p.o. by general surgery Review of records revealed that patient 59-year-old female with a past medical history significant for GERD, depression recently evaluated and treated at [facility] for perforated diverticulitis with an abscess status post CT-guided drainage apparently the culture were negative she was treated with IV antibiotics with subsequent discharged on a 5-day course of oral Avelox with the patient has completed subsequently patient started having increasing abdominal pain and also complaining of lower back pain patient describing the pain to be sharp throbbing moderate to severe intensity without any radiation patient did have decreased appetite and nausea but no vomiting denies having any constipation did have some loose stools denies any blood or mucus in the stools and no high-grade fever patient was evaluated by the PCP and was advised to go to the hospital on arrival to the ER the patient did have low-grade fever of 100.4 degrees for night patient was nontachycardic hypotensive or hypoxic she did have white count of 21.2 with a left shift creatinine has been normal electrolytes are normal liver enzymes normal urine is mildly positive patient did have a CT of abdominal pelvis we did shows a marginal decrease in size of the pelvic abscess from prior examination now measuring up to 6.2 cm infla mmatory changes with the wall thickening involving the sigmoid colon with diverticula patient was started on Zosyn with general surgery on consult, s/p exploratory laparotomy on November 24, 2023 Objective - Vital Signs Vital signs: Vital Signs Temp 99.2 F 11/24/24 13:32 Pulse 105 H 11/24/24 13:32 Resp 18 11/24/24 13:32 BP 116/71 11/24/24 13:32 Pulse Ox 97 11/24/24 13:32 FiO2 Intake & Output 11/23/24 11/24/24 11/24/24 18:59 06:59 18:59 Intake Total 950 1200 Output Total 1275 Balance 950 -75 Weight 56.699 kg Intake: IV 950 1200 Output: Drainage 125 Right Lower Abdomen 125 Urine 1050 Estimated Blood Loss 100 Other: Voiding Method Indwelling Catheter Indwelling Catheter # Voids 2 - Exam GENERAL DESCRIPTION: Middle-age female lying in bed, no distress. No tachypnea or accessory muscle of respiration use. HEENT: Shows Pallor , no scleral icterus. Oral mucous membrane is dry. No pharyn geal erythema or thrush NECK: Trachea central, no thyromegaly. LUNGS: Unlabored breathing. Clear to auscultation anteriorly. No wheeze or crackle. HEART: S1, S2, regular rate and rhythm. No loud murmur ABDOMEN: Soft, left lower abdominal tenderness , no guarding or rigidity EXTREMITIES: No edema of feet. SKIN: No rash, no masses palpable. NEUROLOGICAL: The patient is awake, alert, oriented x3, mood and affect normal. - Labs CBC & Chem 7: 11/24/24 05:30 11/24/24 05:30 Labs: Abnormal Lab Results - Last 24 Hours (Table) 11/24/24 11/24/24 Range/Units 05:30 05:30 WBC 17.49 H (4.50-10.00) X 10*3/uL RBC 3.80 L (4.10-5.20) X 10*6/uL Hct 36.9 L (37.2-46.3) % MCV 97.1 H (80.0-97.0) FL RDW 16.3 H (11.5-14.5) % Immature Gran # 0.09 H (0.00-0.04) X 10*3/uL Neutrophils # 14.72 H (1.80-7.70) X 10*3/uL Lymphocytes # 0.86 L (0.90-5.00) X 10*3/uL Monocytes # 1.76 H (0.20-1.00) X 10*3/uL Eosinophils # 0.03 L (0.04-0.35) X 10*3/uL Carbon Dioxide 21.4 L (21.6-31.8) mmol/L Anion Gap 15.60 H (4.00-12.00) mmol/L BUN 4.9 L (9.0-27.0) mg/dL Creatinine 0.4 L (0.6-1.5) mg/dL Calcium 7.9 L (8.7-10.3) mg/dL Microbiology - Last 24 Hours (Table) 11/21/24 16:14 Blood Culture - Preliminary Blood Assessment and Plan Assessment: Complicated diverticulitis with intra-abdominal abscess Sepsis due to intra-abdominal process Small bowel obstruction Status post exploratory laparotomy on November 23 with sigmoidectomy and end colostomy and ileocecectomy Leukocytosis History of diverticulitis GERD Depression Plan: Keep patient n.p.o. Gentle rehydration Breathing exercises incentive spirometry along with bronchodilators PPI DVT prophylaxis with subcu heparin Toradol and Dilaudid for pain control Gentle rehydration with LR Smoking cessation counseling and continue nicotine patch Broad-spectrum IV antibiotics Monitor labs CBC and chemistry closely Time with Patient: Greater than 30
[2024-11-24] MEDS: HEPARIN SODIUM,PORCINE 5,000 UNIT/ML 1 ML VIAL SQ SCH (20:48)
--- NOTE | 2024-11-25 09:29 | P.PN ---
Progress Note - Text Progress Note Date: 11/25/24 CHIEF COMPLAINT: Diverticulitis with abscess HISTORY OF PRESENT ILLNESS: Patient is postop day #2 status post exploratory laparotomy, sigmoidectomy with end colostomy and ileocecectomy for complicated diverticulitis, intra-abdominal abscesses and small bowel obstruction. Pain is controlled. Denies nausea or vomiting. There is some bowel sweat in the colostomy bag. Denies fevers and chills. PHYSICAL EXAM: VITAL SIGNS: Reviewed. GENERAL: Well-developed in no acute distress. ABDOMEN: Soft. Mildly distended. Tenderness at incision site. Incisional dressing small amount of dried blood noted. Ostomy with beefy red stoma. Bowel Sweat NEUROLOGIC: Alert and oriented. Cranial nerves II through XII grossly intact. ASSESSMENT: 1. Complicated diverticulitis with intra-abdominal abscess 2. Small bowel obstruction PLAN: -Keep patient NPO. Ok for Ice Chips -Continue pain management -Continue IV fluids -Continue antibiotics -Discontinue Martinez Catheter -Incentive spirometer ordered -Encourage patient increase activity level -AM labs -GI prophylaxis Pepcid and DVT prophylaxis subcu heparin Liam Gallegos DO [facility] [phone]
[2024-11-25 09:52] LABS: Basophils # (A) 0.04 X 10*3/uL (0.00-0.10); Basophils % (A) 0.3 %; Eosinophils # (A) 0.03 X 10*3/uL (0.04-0.35); Eosinophils % (A) 0.2 %; HCT 29.3 % (37.2-46.3); HGB 9.3 g/dL (12.0-15.0); Lymphocytes # (A) 0.95 X 10*3/uL (0.90-5.00); Lymphocytes % (A) 6.6 %; MCH 31.5 pg (27.0-32.0); MCHC 31.7 g/dL (32.0-37.0); MCV 99.3 FL (80.0-97.0); Mean Platelet Volume 11.5 FL (9.5-12.2); Monocytes # (A) 1.96 X 10*3/uL (0.20-1.00); Monocytes % (A) 13.7 %; NRBC Per 100 WBC 0 X 10*3/uL (0.00-0.01); Neutrophils # (A) 11.26 X 10*3/uL (1.80-7.70); Neutrophils % (A) 78.7 %; Platelet Count 371 X 10*3/uL (140-440); RBC 2.95 X 10*6/uL (4.10-5.20); RDW 16.2 % (11.5-14.5); WBC 14.31 X 10*3/uL (4.50-10.00)
--- NOTE | 2024-11-25 11:05 | P.PN ---
Subjective Progress Note Date: 11/25/24 Principal diagnosis: Complicated diverticulitis with intra-abdominal abscess Sepsis due to intra-abdominal process Small bowel obstruction Status post exploratory laparotomy on November 23 with sigmoidectomy and end colostomy and ileocecectomy Leukocytosis History of diverticulitis November 25, 2024, patient seen evaluate examined care plan discussed with the patient as well as present at bedside at length, patient Martinez's catheter has been removed, still have JANETH drain with serosanguineous discharge in the anterior abdominal wall on the right side, patient is s/p colostomy with clear fluid in the back. Patient has been on ice chips tolerating well, breathing has been stable denies any chest pain mild shortness of breath on activity and exertion is present, patient remains on bronchodilator tolerating well also has been on PPI for peptic ulcer disease as well as heparin for DVT prophylaxis pain management is with Toradol and Dilaudid patient has been continued on home medicine including Toprol and Ambien and smoking cessation advised along with Habitrol patch. Patient remains on broad-spectrum IV antibiotic with Zosyn. Labs from today reviewed WBC count improved to 14,000 down from 17,000 yesterday, hemoglobin slightly downward trend 9.3 with platelet count 371. Chemistry not done today. Blood cultures no growth so far November 24, 2024, patient seen evaluate examined, she is n.p.o. has abdominal drain, colostomy patient however is on room air oxygen saturation 97% hemodynamic status stable with blood pressure 116/71, heart rate 105, low-grade temperature of 99 is present, labs from today reviewed WBC count is 17.49 hemoglobin of 812/36 platelet count of 440, labs reviewed BUN/creatinine 4.9/0.4, chemistry otherwise fairly within normal limit. Patient is kept n.p.o. by general surgery Review of records revealed that patient 59-year-old female with a past medical history significant for GERD, depression recently evaluated and treated at [facility] for perforated diverticulitis with an abscess status post CT-guided drainage apparently the culture were negative she was treated with IV antibiotics with subsequent discharged on a 5-day course of oral Avelox with the patient has completed subsequently patient started having increasing abdominal pain and also complaining of lower back pain patient describing the pain to be sharp throbbing moderate to severe intensity without any radiation patient did have decreased appetite and nausea but no vomiting denies having any constipation did have some loose stools denies any blood or mucus in the stools and no high-grade fever patient was evaluated by the PCP and was advised to go to the hospital on arrival to the ER the patient did have low-grade fever of 100.4 degrees for night patient was nontachycardic hypotensive or hypoxic she did have white count of 21.2 with a left shift creatinine has been normal electrolytes are normal liver enzymes normal urine is mildly positive patient did have a CT of abdominal pelvis we did shows a marginal decrease in size of the pelvic abscess from prior examination now measuring up to 6.2 cm inflammatory changes with the wall thickening involving the sigmoid colon with diverticula patient was started on Zosyn with general surgery on consult, s/p exploratory laparotomy on November 24, 2023 Objective - Vital Signs Vital signs: Vital Signs Temp 97.7 F 11/25/24 07:31 Pulse 77 11/25/24 07:31 Resp 16 11/25/24 07:31 BP 123/72 11/25/24 07:31 Pulse Ox 99 11/25/24 07:31 FiO2 Intake & Output 11/24/24 11/25/24 11/25/24 18:59 06:59 18:59 Output Total 410 20 Balance -410 -20 Weight 56.699 kg Output: Drainage 60 20 Right Lower Abdomen 60 20 Urine 350 Other: Voiding Method Indwelling Catheter Indwelling Catheter Indwelling Catheter - Exam GENERAL DESCRIPTION: Middle-age female lying in bed, no distress. No tachypnea or accessory muscle of respiration use. HEENT: Shows Pallor , no scleral icterus. Oral mucous membrane is dry. No pharyngeal erythema or thrush NECK: Trachea central, no thyromegaly. LUNGS: Unlabored breathing. Clear to auscultation anteriorly. No wheeze or crackle. HEART: S1, S2, regular rate and rhythm. No loud murmur ABDOMEN: Soft, left lower abdominal tenderness , no guarding or rigidity, JANETH drain and colostomy with no discoloration EXTREMITIES: No edema of feet. SKIN: No rash, no masses palpable. NEUROLOGICAL: The patient is awake, alert, oriented x3, mood and affect normal. - Labs CBC & Chem 7: 11/25/24 05:44 11/24/24 05:30 Labs: Abnormal Lab Results - Last 24 Hours (Table) 11/25/24 Range/Units 05:44 WBC 14.31 H (4.50-10.00) X 10*3/uL RBC 2.95 L (4.10-5.20) X 10*6/uL Hgb 9.3 L (12.0-15.0) g/dL Hct 29.3 L (37.2-46.3) % MCV 99.3 H (80.0-97.0) FL MCHC 31.7 L (32.0-37.0) g/dL RDW 16.2 H (11.5-14.5) % Immature Gran # 0.07 H (0.00-0.04) X 10*3/uL Neutrophils # 11.26 H (1.80-7.70) X 10*3/uL Monocytes # 1.96 H (0.20-1.00) X 10*3/uL Eosinophils # 0.03 L (0.04-0.35) X 10*3/uL Microbiology - Last 24 Hours (Table) 11/21/24 16:14 Blood Culture - Preliminary Blood Assessment and Plan Assessment: Complicated diverticulitis with intra-abdominal abscess Sepsis due to intra-abdominal process Small bowel obstruction Status post exploratory laparotomy on November 23 with sigmoidectomy and end colostomy and ileocecectomy COPD Leukocytosis History of diverticulitis GERD Depression Plan: Keep patient n.p.o. except ice chips Gentle rehydration Breathing exercises incentive spirometry along with bronchodilators PPI DVT prophylaxis with subcu heparin Toradol and Dilaudid for pain control Gentle rehydration with LR Smoking cessation counseling and continue nicotine patch Broad-spectrum IV antibiotics with IV Zosyn Monitor labs CBC and chemistry closely Time with Patient: Greater than 30
[2024-11-25 11:33] LABS: ALT 7 U/L (8-44); AST 13 U/L (13-35); Albumin 2.2 g/dL (3.8-4.9); Alkaline Phosphatase 79 U/L (41-126); Blood Urea Nitrogen 10.6 mg/dL (9.0-27.0); Carbon Dioxide 26.1 mmol/L (21.6-31.8); Chloride 102 mmol/L (96-109); Globulin 2.2 g/dL (1.6-3.3); Glucose 97 mg/dL (70-110); Potassium 3.6 mmol/L (3.5-5.5); Sodium 138 mmol/L (135-145); Total Bilirubin 0.6 mg/dL (0.3-1.2); Total Protein 4.4 g/dL (6.2-8.2)
--- NOTE | 2024-11-25 14:16 | P.PN ---
Subjective Progress Note Date: 11/25/24 Principal diagnosis: Reason for follow-up is perforated diverticulitis with intra-abdominal abscess Patient is a 59-year-old female with a past medical history significa nt for reflux depression recently evaluated and treated at [facility] for perforated diverticulitis with an abscess status post CT-guided drainage, now presenting with abdominal pain and has been diagnosed with intra- abdominal abscess perforated diverticulitis.Patient is status post Exploratory Laparotomy, Sigmoidectomy with End Colostomy and ileocecectomy completed on 11/23/2024 for perforated diverticulitis with intra-abdominal abscess On today's evaluation that is 11/25/2024, patient did not have any fever and denies any chills, patient is breathing comfortably on room air, patient with no chest pain or cough patient abdominal pain currently controlled with pain medication slight decrease in intensity still have the NG tube output in the colostomy. Patient white count is at 14.31, creatinine 0.4 blood cultures pending Objective - Vital Signs Vital signs: Vital Signs Temp 97.7 F 11/25/24 07:31 Pulse 77 11/25/24 07:31 Resp 16 11/25/24 07:31 BP 123/72 11/25/24 07:31 Pulse Ox 99 11/25/24 07:31 FiO2 Intake & Output 11/24/24 11/25/24 11/25/24 18:59 06:59 18:59 Output Total 410 20 Balance -410 -20 Weight 56.699 kg Output: Drainage 60 20 Right Lower Abdomen 60 20 Urine 350 Other: Voiding Method Indwelling Catheter Indwelling Catheter Indwelling Catheter # Voids 1 - Exam GENERAL DESCRIPTION: Middle-age female lying in bed in no distress RESPIRATORY SYSTEM: Unlabored breathing , decreased breath sounds at bases HEART: S1 S2 regular rate and rhythm , ABDOMEN: Soft , mild tenderness EXTREMITIES: No edema feet - Labs CBC & Chem 7: 11/25/24 05:44 11/25/24 05:44 Labs: Abnormal Lab Results - Last 24 Hours (Table) 11/25/24 11/25/24 Range/Units 05:44 05:44 WBC 14.31 H (4.50-10.00) X 10*3/uL RBC 2.95 L (4.10-5.20) X 10*6/uL Hgb 9.3 L (12.0-15.0) g/dL Hct 29.3 L (37.2-46.3) % MCV 99.3 H (80.0-97.0) FL MCHC 31.7 L (32.0-37.0) g/dL RDW 16.2 H (11.5-14.5) % Immature Gran # 0.07 H (0.00-0.04) X 10*3/uL Neutrophils # 11.26 H (1.80-7.70) X 10*3/uL Monocytes # 1.96 H (0.20-1.00) X 10*3/uL Eosinophils # 0.03 L (0.04-0.35) X 10*3/uL Creatinine 0.4 L (0.6-1.5) mg/dL BUN/Creatinine Ratio 26.50 H (12.00-20.00) Ratio Calcium 8.0 L (8.7-10.3) mg/dL ALT 7 L (8-44) U/L Total Protein 4.4 L (6.2-8.2) g/dL Albumin 2.2 L (3.8-4.9) g/dL Albumin/Globulin Ratio 1.00 L (1.60-3.17) Ratio Microbiology - Last 24 Hours (Table) 11/21/24 16:14 Blood Culture - Preliminary Blood Assessment and Plan (1) Sepsis Current Visit: Yes Status: Acute Code(s): A41.9 - SEPSIS, UNSPECIFIED ORGANISM SNOMED Code(s): 13106493 (2) Intra-abdominal abscess Current Visit: Yes Status: Acute Code(s): K65.1 - PERITONEAL ABSCESS SNOMED Code(s): 45561070 (3) Diverticulitis Current Visit: Yes Status: Acute Code(s): K57.92 - DVTRCLI OF INTEST, PART UNSP, W/O PERF OR ABSCESS W/O BLEED SNOMED Code(s): 535505355 Plan: 1-patient presented to hospital with sepsis in this patient who did have fever elevated white count source is perforated diverticulitis with intra-abdominal abscess that apparently did not respond very well to the treatment provided at [facility] and failing outpatient oral antibiotic therapy. 2-apparently IR was not able to drain the abscess patient is status post Sigmoidectomy with End Colostomy and ileocecectomy completed on 12/03/2024 for perforated diverticulitis with an abscess but no cultures were done 3-patient is afebrile patient white count is trending down we will continue with Zosyn at the bedside multiple question concern answered Dictation was produced using [employer] dictation software. please excuse any grammatical, word or spelling errors. Time with Patient: Less than 30
--- NOTE | 2024-11-26 09:19 | P.PN ---
Progress Note - Text Progress Note Date: 11/26/24 CHIEF COMPLAINT: Diverticulitis with abscess HISTORY OF PRESENT ILLNESS: Patient is postop day #3 status post exploratory laparotomy, sigmoidectomy with end colostomy and ileocecectomy for complicated diverticulitis, intra-abdominal abscesses and small bowel obstruction. Pain is controlled. Denies nausea or vomiting. There is some bowel sweat in the colostomy bag. Denies fevers and chills. PHYSICAL EXAM: VITAL SIGNS: Reviewed. GENERAL: Well-developed in no acute distress. ABDOMEN: Soft. Mildly distended. Tenderness at incision site. Incisional dressing small amount of dried blood noted. Ostomy with beefy red stoma. Bowel Sweat NEUROLOGIC: Alert and oriented. Cranial nerves II through XII grossly intact. ASSESSMENT: 1. Complicated diverticulitis with intra-abdominal abscess 2. Small bowel obstruction PLAN: -Ok for Sips of Clears -Clamp Nasogastric Tube -Continue pain management -Continue IV fluids -Continue antibiotics -Incentive spirometer ordered -Encourage patient increase activity level -AM labs -GI prophylaxis Pepcid and DVT prophylaxis subcu heparin Liam Gallegos [facility] [phone]
[2024-11-26 11:24] LABS: ALT 7 U/L (8-44); AST 16 U/L (13-35); Albumin 2.2 g/dL (3.8-4.9); Albumin/Globulin Ratio 0.96 Ratio (1.60-3.17); Alkaline Phosphatase 80 U/L (41-126); BUN/Creat Ratio 21.75 Ratio (12.00-20.00); Blood Urea Nitrogen 8.7 mg/dL (9.0-27.0); Calcium 7.8 mg/dL (8.7-10.3); Carbon Dioxide 23.8 mmol/L (21.6-31.8); Chloride 100 mmol/L (96-109); Globulin 2.3 g/dL (1.6-3.3); Glucose 75 mg/dL (70-110); Potassium 3.3 mmol/L (3.5-5.5); Sodium 137 mmol/L (135-145); Total Bilirubin 0.4 mg/dL (0.3-1.2); Total Protein 4.5 g/dL (6.2-8.2)
--- NOTE | 2024-11-26 11:53 | P.PN ---
Subjective Progress Note Date: 11/26/24 Principal diagnosis: Complicated diverticulitis with intra-abdominal abscess Sepsis due to intra-abdominal process Small bowel obstruction Status post exploratory laparotomy on November 23 with sigmoidectomy and end colostomy and ileocecectomy Leukocytosis History of diverticulitis November 26, 2024, patient seen eval examined during rounds labs reviewed medications reviewed, patient has high output through the NG tube. Remains n.p.o. except ice chips, patient noted to have some bowel movement in colostomy bag. Patient has been instructed about deep breathing/incentive spirometry. Labs reviewed sodium 137 potassium 3.3 BUN/creatinine is 9/0.4, will replace IV potassium November 25, 2024, patient seen evaluate examined care plan discussed with the pa nan as well as present at bedside at length, patient Martinez's catheter has been removed, still have JANETH drain with serosanguineous discharge in the anterior abdominal wall on the right side, patient is s/p colostomy with clear fluid in the back. Patient has been on ice chips tolerating well, breathing has been stable denies any chest pain mild shortness of breath on activity and exertion is present, patient remains on bronchodilator tolerating well also has been on PPI for peptic ulcer disease as well as heparin for DVT prophylaxis pain management is with Toradol and Dilaudid patient has been continued on home medicine including Toprol and Ambien and smoking cessation advised along with Habitrol patch. Patient remains on broad-spectrum IV antibiotic with Zosyn. Labs from today reviewed WBC count improved to 14,000 down from 17,000 yesterday, hemoglobin slightly downward trend 9.3 with platelet count 371. Chemistry not done today. Blood cultures no growth so far November 24, 2024, patient seen evaluate examined, she is n.p.o. has abdominal drain, colostomy patient however is on room air oxygen saturation 97% hemodynamic status stable with blood pressure 116/71, heart rate 105, low-grade temperature of 99 is present, labs from today reviewed WBC count is 17.49 hemoglobin of 812/36 platelet count of 440, labs reviewed BUN/creatinine 4.9/0.4, chemistry otherwise fairly within normal limit. Patient is kept n.p.o. by general surgery Review of records revealed that patient 59-year-old female with a past medical history significant for GERD, depression recently evaluated and treated at [facility] for perforated diverticulitis with an abscess status post CT-guided drainage apparently the culture were negative she was treated with IV antibiotics with subsequent discharged on a 5-day course of oral Avelox with the patient has completed subsequently patient started having increasing abdominal pain and also complaining of lower back pain patient describing the pain to be sharp throbbing moderate to severe intensity without any radiation patient did have decreased appetite and nausea but no vomiting denies having any constipation did have some loose stools denies any blood or mucus in the stools and no high-grade fever patient was evaluated by the PCP and was advised to go to the hospital on arrival to the ER the patient did have low-grade fever of 100.4 degrees for night patient was nontachycardic hypotensive or hypoxic she did have white count of 21.2 with a left shift creatinine has been normal electrolytes are normal liver enzymes normal urine is mildly positive patient did have a CT of abdominal pelvis we did shows a marginal decrease in size of the pelvic abscess from prior examination now measuring up to 6.2 cm inflammatory changes with the wall thickening involving the sigmoid colon with diverticula patient was started on Zosyn with general surgery on consult, s/p exploratory laparotomy on November 24, 2023 Objective - Vital Signs Vital signs: Vital Signs Temp 98.3 F 11/26/24 06:58 Pulse 79 11/26/24 06:58 Resp 17 11/26/24 06:58 BP 162/79 11/26/24 06:58 Pulse Ox 90 L 11/26/24 06:58 FiO2 Intake & Output 11/25/24 11/26/24 11/26/24 17:59 06:59 18:59 Intake Total Output Total 360 Balance -360 Intake: Intake, IV Titration Amount Lactated Ringers 1,000 ml @ 130 mls/hr IV .Q7H42M [facility] Rx#:[id number] Piperacillin-Tazobactam 3 .375 gm In Sodium Chloride 0.9% 100 ml @ 25 mls/hr IVPB Q8HR [facility] Rx# :[id number] Output: Gastric Drainage 350 Drainage 10 Right Lower Abdomen 10 Urine Other: Voiding Method # Voids 1 # Bowel Movements - Exam GENERAL DESCRIPTION: Middle-age female lying in bed, no distress. No tachypnea or accessory muscle of respiration use. HEENT: Shows Pallor , no scleral icterus. Oral mucous membrane is dry. No pharyngeal erythema or thrush NECK: Trachea central, no thyromegaly. LUNGS: Unlabored breathing. Clear to auscultation anteriorly. No wheeze or crackle. HEART: S1, S2, regular rate and rhythm. No loud murmur ABDOMEN: Soft, left lower abdominal tenderness , no guarding or rigidity, JANETH drain and colostomy with no discoloration EXTREMITIES: No edema of feet. SKIN: No rash, no masses palpable. NEUROLOGICAL: The patient is awake, alert, oriented x3, mood and affect normal. - Labs CBC & Chem 7: 11/25/24 05:44 11/26/24 06:02 Labs: Abnormal Lab Results - Last 24 Hours (Table) 11/25/24 11/26/24 Range/Units 05:44 06:02 Potassium 3.3 L (3.5-5.5) mmol/L Anion Gap 13.20 H (4.00-12.00) mmol/L BUN 8.7 L (9.0-27.0) mg/dL Creatinine 0.4 L 0.4 L (0.6-1.5) mg/dL BUN/Creatinine Ratio 26.50 H 21.75 H (12.00-20.00) Ratio Calcium 8.0 L 7.8 L (8.7-10.3) mg/dL ALT 7 L 7 L (8-44) U/L Total Protein 4.4 L 4.5 L (6.2-8.2) g/dL Albumin 2.2 L 2.2 L (3.8-4.9) g/dL Albumin/Globulin Ratio 1.00 L 0.96 L (1.60-3.17) Ratio Assessment and Plan Assessment: Hypokalemia, replace potassium Subsegmental atelectasis on the right upper lobe as well as lingula lobe likely resolving pneumonia, agree with broad-spectrum antibiotics Developing ileus and high output, contributed by hypokalemia will replace potassium Complicated diverticulitis with intra-abdominal abscess Sepsis due to intra-abdominal process Small bowel obstruction Status post exploratory laparotomy on November 23 with sigmoidectomy and end colostomy and ileocecectomy COPD Leukocytosis History of diverticulitis GERD Depression Plan: Keep patient n.p.o. except ice chips Gentle rehydration Breathing exercises incentive spirometry along with bronchodilators PPI DVT prophylaxis with subcu heparin Toradol and Dilaudid for pain control Gentle rehydration with LR Smoking cessation counseling and continue nicotine patch Broad-spectrum IV antibiotics with IV Zosyn Monitor labs CBC and chemistry closely Time with Patient: Greater than 30
[2024-11-26] MEDS: POTASSIUM CHLORIDE 20 MEQ in WATER FOR INJECTION 1 100ML.BAG IVPB STA (12:57)
[2024-11-26] MEDS: amLODIPine 2.5 MG TAB PO SCH (14:48)
[2024-11-26] MEDS: POTASSIUM BICARBONATE/CIT AC 20 MEQ TABLET.EFF PO ONE (14:48)
--- NOTE | 2024-11-26 15:15 | P.PN ---
Subjective Progress Note Date: 11/26/24 Principal diagnosis: Reason for follow-up is perforated diverticulitis with intra-abdominal abscess Patient is a 59-year-old female with a past medical history significa nt for reflux depression recently evaluated and treated at [facility] for perforated diverticulitis with an abscess status post CT-guided drainage, now presenting with abdominal pain and has been diagnosed with intra- abdominal abscess perforated diverticulitis.Patient is status post Exploratory Laparotomy, Sigmoidectomy with End Colostomy and ileocecectomy completed on 11/23/2024 for perforated diverticulitis with intra-abdominal abscess On today's evaluation that is 11/26/2024, Patient is afebrile patient is currently on room air and denies having any shortness of breath, the patient denies any chest pain or cough, the patient denies any nausea vomiting NG has been discontinued abdominal pain is controlled did have some output in her colostomy. Patient did have a creatinine 0.4 no CBC was done today blood culture has been negative Objective - Vital Signs Vital signs: Vital Signs Temp 98.3 F 11/26/24 06:58 Pulse 79 11/26/24 06:58 Resp 17 11/26/24 06:58 BP 162/79 11/26/24 06:58 Pulse Ox 90 L 11/26/24 06:58 FiO2 Intake & Output 11/25/24 11/26/24 11/26/24 17:59 06:59 18:59 Intake Total Output Total 360 Balance -360 Intake: Intake, IV Titration Amount Lactated Ringers 1,000 ml @ 130 mls/hr IV .Q7H42M [facility] Rx#:[id number] Piperacillin-Tazobactam 3 .375 gm In Sodium Chloride 0.9% 100 ml @ 25 mls/hr IVPB Q8HR [facility] Rx# :[id number] Output: Gastric Drainage 350 Drainage 10 Right Lower Abdomen 10 Urine Other: Voiding Method # Voids 1 # Bowel Movements - Exam GENERAL DESCRIPTION: Middle-age female lying in bed in no distress RESPIRATORY SYSTEM: Unlabored breathing , decreased breath sounds at bases HEART: S1 S2 regular rate and rhythm , ABDOMEN: Soft , mild tenderness EXTREMITIES: No edema feet - Labs CBC & Chem 7: 11/25/24 05:44 11/26/24 06:02 Labs: Abnormal Lab Results - Last 24 Hours (Table) 11/26/24 Range/Units 06:02 Potassium 3.3 L (3.5-5.5) mmol/L Anion Gap 13.20 H (4.00-12.00) mmol/L BUN 8.7 L (9.0-27.0) mg/dL Creatinine 0.4 L (0.6-1.5) mg/dL BUN/Creatinine Ratio 21.75 H (12.00-20.00) Ratio Calcium 7.8 L (8.7-10.3) mg/dL ALT 7 L (8-44) U/L Total Protein 4.5 L (6.2-8.2) g/dL Albumin 2.2 L (3.8-4.9) g/dL Albumin/Globulin Ratio 0.96 L (1.60-3.17) Ratio Assessment and Plan (1) Sepsis Current Visit: Yes Status: Acute Code(s): A41.9 - SEPSIS, UNSPECIFIED ORGANISM SNOMED Code(s): 12854182 (2) Intra-abdominal abscess Current Visit: Yes Status: Acute Code(s): K65.1 - PERITONEAL ABSCESS SN OMED Code(s): 99477628 (3) Diverticulitis Current Visit: Yes Status: Acute Code(s): K57.92 - DVTRCLI OF INTEST, PART UNSP, W/O PERF OR ABSCESS W/O BLEED SNOMED Code(s): 358831540 Plan: 1-patient presented to hospital with sepsis in this patient who did have fever elevated white count source is perforated diverticulitis with intra-abdominal abscess that apparently did not respond very well to the treatment provided at [facility] and failing outpatient oral antibiotic therapy. 2-apparently IR was not able to drain the abscess patient is status post Sigmoidectomy with End Colostomy and ileocecectomy completed on 12/03/2024 for perforated diverticulitis with an abscess but no cultures were done 3-patient is afebrile patient white count is trending down as of yesterday no CBC was done today we will repeat his CBC with a.m. lab and continue with the Zon monitor clinical course closely at the bedside multiple question concern answered Dictation was produced using [employer] dictation software. please excuse any gram matical, word or spelling errors.
[2024-11-26] MEDS ORDERED: amLODIPine 2.5 MG TAB PO SCH (21:00)
[2024-11-26] MEDS: hydrALAZINE HCL 20 MG/ML 1 ML VIAL IVP PRN (22:47)
[2024-11-27 09:08] LABS: Basophils # (A) 0.03 X 10*3/uL (0.00-0.10); Basophils % (A) 0.3 %; Eosinophils # (A) 0.15 X 10*3/uL (0.04-0.35); Eosinophils % (A) 1.4 %; HCT 27.9 % (37.2-46.3); Lymphocytes # (A) 1.14 X 10*3/uL (0.90-5.00); Lymphocytes % (A) 10.7 %; MCH 31.4 pg (27.0-32.0); MCHC 32.3 g/dL (32.0-37.0); MCV 97.2 FL (80.0-97.0); Mean Platelet Volume 11.1 FL (9.5-12.2); Monocytes # (A) 1.26 X 10*3/uL (0.20-1.00); Monocytes % (A) 11.8 %; NRBC Per 100 WBC 0 X 10*3/uL (0.00-0.01); Neutrophils # (A) 8.01 X 10*3/uL (1.80-7.70); Neutrophils % (A) 75.1 %; Platelet Count 370 X 10*3/uL (140-440); RBC 2.87 X 10*6/uL (4.10-5.20); RDW 16.2 % (11.5-14.5); WBC 10.66 X 10*3/uL (4.50-10.00)
[2024-11-27 12:13] LABS: Magnesium 1.4 mg/dL (1.6-2.3); Potassium 3.2 mmol/L (3.5-5.1)
--- NOTE | 2024-11-27 15:25 | P.PN ---
Subjective Progress Note Date: 11/27/24 Principal diagnosis: Reason for follow-up is perforated diverticulitis with intra-abdominal abscess Patient is a 59-year-old female with a past medical history significa nt for reflux depression recently evaluated and treated at [facility] for perforated diverticulitis with an abscess status post CT-guided drainage, now presenting with abdominal pain and has been diagnosed with intra- abdominal abscess perforated diverticulitis.Patient is status post Exploratory Laparotomy, Sigmoidectomy with End Colostomy and ileocecectomy completed on 11/23/2024 for perforated diverticulitis with intra-abdominal abscess On today's evaluation that is 11/27/2024, patient has been afebrile, patient is breathing comfortably and is currently on room air, patient denies having any significant cough no chest pain, patient denies nausea vomiting abdominal pain is currently controlled did have output in colostomy. Patient white count is 10.66 blood culture has been negative Objective - Vital Signs Vital signs: Vital Signs Temp 98.3 F 11/27/24 07:27 Pulse 75 11/27/24 07:27 Resp 18 11/27/24 07:27 BP 151/71 11/27/24 07:27 Pulse Ox 92 L 11/27/24 07:27 FiO2 Intake & Output 11/26/24 11/27/24 11/27/24 18:59 06:59 18:59 Intake Total 50 1800 Output Total 410 70 Balance -360 1730 Intake: Intake, IV Titration 50 Amount Potassium Chloride 20 meq 50 In Water For Injection 1 100ml.bag @ 50 mls/hr IVPB [facility] Rx#: [id number] Oral 1800 Output: Gastric Drainage 350 Drainage 10 20 Right Lower Abdomen 10 20 Stool 50 50 Other: Voiding Method Toilet Toilet # Voids 3 4 - Exam GENERAL DESCRIPTION: Middle-age female lying in bed in no distress RESPIRATORY SYSTEM: Unlabored breathing , decreased breath sounds at bases HEART: S1 S2 regular rate and rhythm , ABDOMEN: Soft , mild tenderness EXTREMITIES: No edema feet - Labs CBC & Chem 7: 11/27/24 03:39 11/27/24 03:39 Labs: Abnormal Lab Results - Last 24 Hours (Table) 11/26/24 11/27/24 Range/Units 06:02 03:39 WBC 10.66 H (4.50-10.00) X 10*3/uL RBC 2.87 L (4.10-5.20) X 10*6/uL Hgb 9.0 L (12.0-15.0) g/dL Hct 27.9 L (37.2-46.3) % MCV 97.2 H (80.0-97.0) FL RDW 16.2 H (11.5-14.5) % Immature Gran # 0.07 H (0.00-0.04) X 10*3/uL Neutrophils # 8.01 H (1.80-7.70) X 10*3/uL Monocytes # 1.26 H (0.20-1.00) X 10*3/uL Potassium 3.3 L (3.5-5.5) mmol/L Anion Gap 13.20 H (4.00-12.00) mmol/L BUN 8.7 L (9.0-27.0) mg/dL Creatinine 0.4 L (0.6-1.5) mg/dL BUN/Creatinine Ratio 21.75 H (12.00-20.00) Ratio Calcium 7.8 L (8.7-10.3) mg/dL ALT 7 L (8-44) U/L Total Protein 4.5 L (6.2-8.2) g/dL Albumin 2.2 L (3.8-4.9) g/dL Albumin/Globulin Ratio 0.96 L (1.60-3.17) Ratio Microbiology - Last 24 Hours (Table) 11/21/24 16:14 Blood Culture - Final Blood Assessment and Plan (1) Sepsis Current Visit: Yes Status: Acute Code(s): A41.9 - SEPSIS, UNSPECIFIED ORGANISM SNOMED Code(s): 35734435 (2) Intra-abdominal abscess Current Visit: Yes Status: Acute Code(s): K65.1 - PERITONEAL ABSCESS SNOMED Code(s): 25006862 (3) Diverticulitis Current Visit: Yes Status: Acute Code(s): K57.92 - DVTRCLI OF INTEST, PART UNSP, W/O PERF OR ABSCESS W/O BLEED SNOMED Code(s): 551027251 Plan: 1-patient presented to hospital with sepsis in this patient who did have fever elevated white count source is perforated diverticulitis with intra-abdominal abscess that apparently did not respond very well to the treatment provided at [facility] and failing outpatient oral antibiotic therapy. 2-apparently IR was not able to drain the abscess patient is status post S igmoidectomy with End Colostomy and ileocecectomy completed on 12/03/2024 for perforated diverticulitis with an abscess but no cultures were done 3-patient is afebrile patient white count has normalized blood culture has been negative we will continue patient on Zosyn while inpatient and monitor clinical course closely Dictation was produced using [employer] dictation software. please excuse any gramma tical, word or spelling errors. Time with Patient: Less than 30
--- NOTE | 2024-11-27 15:54 | P.PN ---
Progress Note - Text Progress Note Date: 11/27/24 HISTORY OF PRESENT ILLNESS: Patient is postop day #4 status post exploratory laparotomy, sigmoidectomy with end colostomy and ileocecectomy for complicated diverticulitis, intra-abdominal abscesses and small bowel obstruction. Pain is controlled. Denies nausea or vomiting. Colostomy is functioning. Denies fevers and chills. PHYSICAL EXAM: VITAL SIGNS: Reviewed. GENERAL: Well-developed in no acute distress. ABDOMEN: Soft. Mildly distended. Tenderness at incision site. Incisional logan ssing small amount of dried blood noted. Ostomy with beefy red stoma. Bowel Sweat NEUROLOGIC: Alert and oriented. Cranial nerves II through XII grossly intact. ASSESSMENT: 1. Complicated diverticulitis with intra-abdominal abscess 2. Small bowel obstruction PLAN: -Advanced to Full Liquid Diet -Continue pain management -Continue IV fluids -Continue antibiotics -Incentive spirometer ordered -Encourage patient increase activity level -AM labs -GI prophylaxis Pepcid and DVT prophylaxis subcu heparin Liam Gallegos [facility] [phone]
[2024-11-27] MEDS ORDERED: Magnesium Replacement Protocol 1 EACH MISC MISCELLANE PRN (16:52)
[2024-11-27] MEDS ORDERED: Potassium Replacement Protocol 1 EACH MISC MISCELLANE PRN (16:52)
[2024-11-27] MEDS: POTASSIUM CHLORIDE ER 20 MEQ TAB.ER PO SCH (17:04)
[2024-11-27] MEDS: MAGNESIUM SULFATE-D5W PMX 1 GM in DEXTROSE/WATER 1 100ML.BAG IVPB SCH (18:11)
[2024-11-28] MEDS: methylPREDNISolone SOD SUCCI 40 MG/ML 1 ML VIAL IV SCH (00:05)
[2024-11-28] MEDS: POTASSIUM CHLORIDE ER 20 MEQ TAB.ER PO SCH (00:06)
--- NOTE | 2024-11-28 02:26 | PN ---
PROGRESS NOTE She had a run of V-tach for which magnesium and potassium have been low. I am going to give her 2 g of magnesium sulfate IV. Potassium supplementation is also being done. Status post colostomy placement, now for abscess, has a diverticular abscess; IV antibiotics have been continuing. Teaching is being given for colostomy bag. Possibly IV antibiotics at home will be done for a long time. PHYSICAL EXAMINATION: VITAL SIGNS: O2 saturation is 92 on room air, blood pressure 150/99, temperature 98, pulse 70 to 78, respiratory rate 16 to 18. CARDIOVASCULAR: S1 and S2. LUNGS: Transmitted upper airway sounds. ASSESSMENT: Hypomagnesemia and hypokalemia. Replace per protocol, most likely cause of ventricular tachycardia with Cardiology consult. Prognosis guarded. Continue wound care, antibiotics IV. KENIA / LEANDERN: [id number] /
[2024-11-28 04:44] LABS: ALT 13 U/L (4-34); AST 24 U/L (14-36); African American GFR (CKD) >90 (>60 ml/min/1.73 sqM); Albumin 2.7 g/dL (3.5-5.0); Albumin/Globulin Ratio 0.9; Alkaline Phosphatase 112 U/L (38-126); Anion Gap 7 mmol/L; Blood Urea Nitrogen <2 mg/dL (7-17); Calcium 8.3 mg/dL (8.4-10.2); Carbon Dioxide 26 mmol/L (22-30); Chloride 98 mmol/L (98-107); Globulin 2.9 g/dL; Glucose 124 mg/dL (74-99); Magnesium 1.7 mg/dL (1.6-2.3); Non-African American GFR(CKD) >90 (>60 ml/min/1.73 sqM); Potassium 4.3 mmol/L (3.5-5.1); Sodium 131 mmol/L (137-145); Total Bilirubin 0.7 mg/dL (0.2-1.3); Total Protein 5.6 g/dL (6.3-8.2)
[2024-11-28 08:43] LABS: Basophils # (A) 0.02 X 10*3/uL (0.00-0.10); Basophils % (A) 0.2 %; Eosinophils # (A) 0.01 X 10*3/uL (0.04-0.35); Eosinophils % (A) 0.1 %; HCT 31.5 % (37.2-46.3); HGB 9.8 g/dL (12.0-15.0); Lymphocytes # (A) 0.42 X 10*3/uL (0.90-5.00); Lymphocytes % (A) 4.1 %; MCH 30.2 pg (27.0-32.0); MCHC 31.1 g/dL (32.0-37.0); MCV 97.2 FL (80.0-97.0); Mean Platelet Volume 11.2 FL (9.5-12.2); Monocytes # (A) 0.27 X 10*3/uL (0.20-1.00); Monocytes % (A) 2.6 %; NRBC Per 100 WBC 0 X 10*3/uL (0.00-0.01); Neutrophils # (A) 9.51 X 10*3/uL (1.80-7.70); Neutrophils % (A) 92.4 %; Platelet Count 396 X 10*3/uL (140-440); RBC 3.24 X 10*6/uL (4.10-5.20); RDW 16.1 % (11.5-14.5); WBC 10.29 X 10*3/uL (4.50-10.00)
--- NOTE | 2024-11-28 14:02 | P.PN ---
Subjective Progress Note Date: 11/28/24 Principal diagnosis: Reason for follow-up is perforated diverticulitis with intra-abdominal abscess Patient is a 59-year-old female with a past medical history significa nt for reflux depression recently evaluated and treated at [facility] for perforated diverticulitis with an abscess status post CT-guided drainage, now presenting with abdominal pain and has been diagnosed with intra- abdominal abscess perforated diverticulitis.Patient is status post Exploratory Laparotomy, Sigmoidectomy with End Colostomy and ileocecectomy completed on 11/23/2024 for perforated diverticulitis with intra-abdominal abscess On today's evaluation that is 11/28/2024, Patient is afebrile this morning patient denies having any chest pain shortness of breath or cough, the patient is currently on room air, patient has been complaining of some drainage from the lower end of the incision. Patient white count is 10.29, creatinine 0.32 blood culture has been negative Objective - Vital Signs Vital signs: Vital Signs Temp 98.1 F 11/28/24 07:00 Pulse 76 11/28/24 09:43 Resp 17 11/28/24 07:00 BP 140/79 11/28/24 07:00 Pulse Ox 94 L 11/28/24 07:00 FiO2 Intake & Output 11/27/24 11/28/24 11/28/24 18:59 06:59 18:59 Intake Total 120 Balance 120 Weight 56.699 kg Intake: Oral 120 Other: Voiding Method Toilet Toilet # Voids 2 3 # Bowel Movements 1 - Exam GENERAL DESCRIPTION: Middle-age female lying in bed in no distress RESPIRATORY SYSTEM: Unlabored breathing , decreased breath sounds at bases HEART: S1 S2 regular rate and rhythm , ABDOMEN: Soft , midline incision intact did have stool in the colostomy EXTREMITIES: No edema feet - Labs CBC & Chem 7: 11/28/24 03:40 11/28/24 03:40 Labs: Abnormal Lab Results - Last 24 Hours (Table) 11/27/24 11/27/24 11/28/24 Range/Units 03:39 20:55 03:40 WBC (4.50-10.00) X 10*3/uL RBC (4.10-5.20) X 10*6/uL Hgb (12.0-15.0) g/dL Hct (37.2-46.3) % MCV (80.0-97.0) FL MCHC (32.0-37.0) g/dL RDW (11.5-14.5) % Immature Gran # (0.00-0.04) X 10*3/uL Neutrophils # (1.80-7.70) X 10*3/uL Lymphocytes # (0.90-5.00) X 10*3/uL Eosinophils # (0.04-0.35) X 10*3/uL Sodium 131 L (137-145) mmol/L Potassium 3.2 L 3.4 L (3.5-5.1) mmol/L BUN <2 L (7-17) mg/dL Creatinine 0.32 L (0.52-1.04) mg/dL Glucose 124 H (74-99) mg/dL Calcium 8.3 L (8.4-10.2) mg/dL Magnesium 1.4 L (1.6-2.3) mg/dL Total Protein 5.6 L (6.3-8.2) g/dL Albumin 2.7 L (3.5-5.0) g/dL 11/28/24 Range/Units 03:40 WBC 10.29 H (4.50-10.00) X 10*3/uL RBC 3.24 L (4.10-5.20) X 10*6/uL Hgb 9.8 L (12.0-15.0) g/dL Hct 31.5 L (37.2-46.3) % MCV 97.2 H (80.0-97.0) FL MCHC 31.1 L (32.0-37.0) g/dL RDW 16.1 H (11.5-14.5) % Immature Gran # 0.06 H (0.00-0.04) X 10*3/uL Neutrophils # 9.51 H (1.80-7.70) X 10*3/uL Lymphocytes # 0.42 L (0.90-5.00) X 10*3/uL Eosinophils # 0.01 L (0.04-0.35) X 10*3/uL Sodium (137-145) mmol/L Potassium (3.5-5.1) mmol/L BUN (7-17) mg/dL Creatinine (0.52-1.04) mg/dL Glucose (74-99) mg/dL Calcium (8.4-10.2) mg/dL Magnesium (1.6-2.3) mg/dL Total Protein (6.3-8.2) g/dL Albumin (3.5-5.0) g/dL Assessment and Plan (1) Sepsis Current Visit: Yes Status: Acute Code(s): A41.9 - SEPSIS, UNSPECIFIED ORGANISM SNOMED Code(s): 88815679 (2) Intra-abdominal abscess Current Visit: Yes Status: Acute Code(s): K65.1 - PERITONEAL ABSCESS SNOMED Code(s): 49902698 (3) Diverticulitis Current Visit: Yes Status: Acute Code(s): K57.92 - DVTRCLI OF INTEST, PART UNSP, W/O PERF OR ABSCESS W/O BLEED SNOMED Code(s): 455221160 Plan: 1-patient presented to hospital with sepsis in this patient who did have fever elevated white count source is perforated diverticulitis with intra-abdominal abscess that apparently did not respond very well to the treatment provided at [facility] and failing outpatient oral antibiotic therapy. 2-apparently IR was not able to drain the abscess patient is status post Sigmoidectomy with End Colostomy and ileocecectomy completed on 12/03/2024 for perforated diverticulitis with an abscess but no cultures were done 3-patient is afebrile patient white count has normalized, patient continue with Zosyn and monitor clinical course closely question answered Dictation was produced using [employer] dictation software. please excuse any grammatical, word or spelling errors. Time with Patient: Less than 30
--- NOTE | 2024-11-28 14:19 | P.CRDCN ---
History of Present Illness History of present illness: HISTORY OF PRESENTING ILLNESS This is a pleasant 59-year-old with past medical history significant for hypertension, hyperlipidemia, tobacco abuse, abdominal abscess/diverticulitis. 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 She has had lengthy hospitalizations over the last 2 to 3 weeks. Initially she was having abdominal pain and found to have an abscess and therefore transferred to [facility] and underwent abscess drainage. The drain was removed however had recurrent abdominal pain and therefore presented back to the emergency department with more abdominal pain and continued abscess. She eventually underwent exploratory laparotomy and colostomy placement with diverticulitis and has been on antibiotics. She states her pain in her abdomen is slowly improving. Cardiology was consulted secondary to 8 beat run of wide-complex tachycardia at approximately 150 bpm. She was asymptomatic from this. She denies any chest pain or pressure. Denies any significant shortness of breath. Patient has been in pain and has needed increasing doses of antihypertensive medications. REVIEW OF SYSTEMS At the time of my exam: CONSTITUTIONAL: Denies fever or chills. CARDIOVASCULAR: Denies chest pain, shortness of breath, orthopnea, PND or palpitations. RESPIRATORY: Denies cough. GASTROINTESTINAL: Denies abdominal pain, diarrhea, constipation, nausea or vomiting. MUSCULOSKELETAL: Denies myalgias. NEUROLOGIC: Denies numbness, tingling or weakness. ENDOCRINE: Denies fatigue, weight change, polydipsia or polyurina. GENITOURINARY: Denies burning, hematuria or urgency with micturation. HEMATOLOGIC: Denies history of anemia or bleeding. PHYSICAL EXAMINATION Vital signs reviewed. CONSTITUTIONAL: No apparent distress. HEENT: Head is normocephalic. Pupils are equal, round. Sclerae anicteric. Mucous membranes of the mouth are moist. No JVD. No carotid bruit. CHEST EXAMINATION: Lungs are clear to auscultation. No chest wall tenderness is noted on palpation or with deep breathing. HEART EXAMINATION: Regular rate and rhythm. S1, S2 heard. No murmurs, gallops or rub. ABDOMEN: Soft, nontender. Positive bowel sounds. EXTREMITIES: 2+ peripheral pulses, no lower extremity edema and no calf tenderness. NEUROLOGIC EXAMINATION: Patient is awake, alert and oriented x3. ASSESSMENT Abscess/diverticulitis status post surgery/colostomy Nonsustained ventricular tachycardia Hypertension Hyperlipidemia Tobacco abuse PLAN Patient with nonsustained ventricular tachycardia and she was asymptomatic. Continue with Toprol all. Troponin noted to be normal and not having any sign ificant angina type symptoms. Check 2D echo to evaluate for any structural heart disease. If normal would continue with conservative management at this time. May consider outpatient stress testing. Tobacco cessation. Mild permissive hypertension as BP will likely normalize after her acute illness and pain improve. May consider decreasing steroids as she is having significant insomnia, racing thoughts and some increased blood pressure readings. 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 diverticultis abscess Past Anesthesia/Blood Transfusion Reactions: No Reported Reaction Past Psychological History: Depression Smoking Status: Current every day smoker Past Alcohol Use History: Daily Additional Past Alcohol Use History / Comment(s): 12 drinks in a week not every day Past Drug Use History: Marijuana - Past Family History Mother Family Medical History: Cancer Medications and Allergies Home Medications Medication Instructions Recorded Confirmed Type Aspirin EC [Ecotrin Low Dose] 81 mg PO DAILY 11/12/24 11/21/24 History Ibuprofen [Motrin] 800 mg PO BID 11/12/24 11/21/24 History Metoprolol Succinate (ER) [Toprol 50 mg PO DAILY 11/12/24 11/21/24 History Xl] PARoxetine [Paxil] 20 mg PO DAILY 11/12/24 11/21/24 History Allergies Allergy/AdvReac Type Severity Reaction Status Date / Time No Known Allergies Allergy Verified 11/23/24 17:21 Physical Exam Vitals: Vital Signs Temp Pulse Pulse Resp BP Pulse Ox 11/28/24 09:43 76 11/28/24 09:32 72 11/28/24 07:00 98.1 F 77 17 140/79 94 L 11/28/24 01:38 98.5 F 78 16 147/81 90 L 11/27/24 21:00 78 11/27/24 19:42 98.1 F 79 17 158/89 92 L 11/27/24 16:50 68 11/27/24 16:36 68 Intake and Output 11/27/24 11/28/24 11/28/24 22:59 06:59 14:59 Intake Total 120 Balance 120 Intake: Oral 120 Other: Voiding Method Toilet # Voids 2 3 # Bowel Movements 1 Results 11/28/24 03:40 11/28/24 03:40 Cardiac Enzymes 11/28/24 Range/Units 03:40 AST 24 (14-36) U/L CBC 11/28/24 Range/Units 03:40 WBC 10.29 H (4.50-10.00) X 10*3/uL RBC 3.24 L (4.10-5.20) X 10*6/uL Hgb 9.8 L (12.0-15.0) g/dL Hct 31.5 L (37.2-46.3) % Plt Count 396 (140-440) X 10*3/uL Comprehensive Metabolic Panel 11/27/24 11/28/24 Range/Units 20:55 03:40 Sodium 131 L (137-145) mmol/L Potassium 3.4 L 4.3 (3.5-5.1) mmol/L Chloride 98 (98-107) mmol/L Carbon Dioxide 26 (22-30) mmol/L BUN <2 L (7-17) mg/dL Creatinine 0.32 L (0.52-1.04) mg/dL Glucose 124 H (74-99) mg/dL Calcium 8.3 L (8.4-10.2) mg/dL AST 24 (14-36) U/L ALT 13 (4-34) U/L Alkaline Phosphatase 112 (38-126) U/L Total Protein 5.6 L (6.3-8.2) g/dL Albumin 2.7 L (3.5-5.0) g/dL Current Medications Generic Name Dose Route Start Last Admin Trade Name Freq PRN Reason Stop Dose Admin Acetaminophen 650 mg 11/21/24 19:03 11/24/24 22:48 Acetaminophen Tab 325 Mg Tab PO 650 mg Q6HR PRN Administration Mild Pain or Fever > 100.5 Albuterol/Ipratropium 3 ml 11/22/24 13:00 11/28/24 09:32 Ipratropium-Albuterol 3 Ml Neb INHALATION 3 ml RT-TID ELROY Administration Amlodipine Besylate 2.5 mg 11/26/24 14:31 11/28/24 09:31 Amlodipine 2.5 Mg Tab PO 2.5 mg BID ELROY Administration Famotidine 20 mg 11/24/24 12:00 11/28/24 09:32 Famotidine 20 Mg/2 Ml Vial IV 20 mg DAILY ELROY Administration Heparin Sodium (Porcine) 5,000 unit 11/24/24 21:00 11/28/24 09:32 Heparin Sodium,Porcine 5,000 Unit/Ml 1 Ml Vial SQ 5,000 unit Q12HR ELROY Administration Hydralazine HCl 10 mg 11/26/24 22:33 11/26/24 22:47 Hydralazine Hcl 20 Mg/Ml 1 Ml Vial IVP 10 mg Q6HR PRN Administration Blood Pressure - High Hydromorphone HCl 1 mg 11/24/24 08:04 11/28/24 10:40 Hydromorphone 1 Mg/Ml 1 Ml Syringe IVP 1 mg Q3HR PRN Administration Moderate to Severe Pain (4-10) Lactated Ringer's 1,000 mls @ 130 mls/hr 11/21/24 18:15 11/28/24 13:47 Lactated Ringers IV Not Given .[id number] ELROY Piperacillin Sod/Tazobactam 100 mls @ 25 mls/hr 11/22/24 00:00 11/28/24 09:32 Sod 3.375 gm/ Sodium Chloride IVPB 25 mls/hr Q8HR ELROY Administration Protocol Methylprednisolone Sodium Succinate 40 mg 11/28/24 00:00 11/28/24 09:32 Methylprednisolone Sod Succi 40 Mg/Ml 1 Ml Vial IV 40 mg Q8HR ELROY Administration Metoprolol Succinate 50 mg 11/23/24 09:00 11/28/24 09:31 Metoprolol Succinate (Er) 50 Mg Tab.Er.24h PO 50 mg DAILY ELROY Administration Miscellaneous Information 1 each 11/27/24 16:52 Potassium Replacement Protocol 1 Each Misc MISCELLANE DAILY PRN Per Protocol Protocol Miscellaneous Information 1 each 11/27/24 16:52 Magnesium Replacement Protocol 1 Each Misc MISCELLANE DAILY PRN Per Protocol Protocol Naloxone HCl 0.2 mg 11/21/24 19:03 Naloxone 0.4 Mg/Ml 1 Ml Vial IV Q2M PRN Opioid Reversal Nicotine 1 patch 11/22/24 09:00 11/28/24 09:31 Nicotine 21mg/24hr Patch TRANSDERM 1 patch DAILY ELROY Administration Ondansetron HCl 8 mg 11/22/24 18:01 11/26/24 04:55 Ondansetron 4 Mg/2 Ml Vial IVP 8 mg Q6HR PRN Administration Nausea And Vomiting Paroxetine HCl 20 mg 11/23/24 09:00 11/28/24 09:31 Paroxetine 20 Mg Tab PO 20 mg DAILY ELROY Administration Zolpidem Tartrate 5 mg 11/22/24 00:56 Zolpidem 5 Mg Tab PO HS PRN Insomnia Intake and Output 11/27/24 11/28/24 11/28/24 22:59 06:59 14:59 Intake Total 120 Balance 120 Intake: Oral 120 Other: Voiding Method Toilet # Voids 2 3 # Bowel Movements 1 11/28/24 03:40 11/28/24 03:40
--- NOTE | 2024-11-28 16:55 | CA ---
Transthoracic Echo Report Name: Azucena Clark Age: 59 Gender: F : 1965 Exam Date: 11/28/2024 11:33 Exam Location: [facility] Ht (in): 64 Wt (lb): 125 Ordering Physician: Naman Jimenez MD Attending/Referring Phys: Java Jsf Developer Rosario Cavazos RDCS Procedure CPT: Indications: Arrythmia Cardiac Hx: Technical Quality: Fair Contrast 1: Total Dose (mL): Contrast 2: Total Dose (mL): MEASUREMENTS (Male / Female) Normal Values 2D ECHO LV Diastolic Diameter PLAX 5.5 cm 4.2 - 5.9 / 3.9 - 5.3 cm LV Systolic Diameter PLAX 3.8 cm IVS Diastolic Thickness 1.1 cm 0.6 - 1.0 / 0.6 - 0.9 cm LVPW Diastolic Thickness 1.0 cm 0.6 - 1.0 / 0.6 - 0.9 cm LV Relative Wall Thickness 0.4 LVOT Diameter 1.8 cm Aortic Root Diameter 3.5 cm LA Systolic Diameter LX 3.0 cm 3.0 - 4.0 / 2.7 - 3.8 cm LA Volume 59.9 cm??? 18 - 58 / 22 - 52 cm??? LA Volume Index 37.4 cm???/m??? 16 - 28 cm???/m??? DOPPLER MV Area PHT 2.7 cm??? Mitral E Point Velocity 59.4 cm/s Mitral A Point Velocity 85.8 cm/s Mitral E to A Ratio 0.7 MV Deceleration Time 282.4 ms TR Peak Velocity 270.8 cm/s TR Peak Gradient 29.3 mmHg FINDINGS Left Ventricle Left ventricular ejection fraction is estimated at 55-60 %. Mildly increased septal wall thickness. Mildly increased posterior wall thickness. Mildly increased left ventricular diastolic diameter. No obvious regional wall motion abnormalities. Right Ventricle Normal right ventricular size and function. Right ventricular systolic pressure within normal limits. Right Atrium Normal right atrial size. Left Atrium Mildly increased left atrial volume. Mildly increased left atrial area. Mitral Valve Mitral valve thickened. Mitral annular calcification. No mitral stenosis. Mild mitral regurgitation. Aortic Valve Trileaflet aortic valve. Thickened aortic valve without stenosis. No aortic regurgitation. Tricuspid Valve Structurally normal tricuspid valve. No tricuspid stenosis. Trace tricuspid regurgitation. Pulmonic Valve Structurally normal pulmonic valve. No pulmonic stenosis. Trace pulmonic regurgitation. Pericardium Small pericardial effusion was thickening of the RV wall Aorta Normal size aortic root and proximal ascending aorta. CONCLUSIONS Left ventricular ejection fraction 55-60% Mild mitral regurgitation Trace tricuspid regurgitation Small pericardial effusion was thickening of the RV wall. Can sometimes be seen with chronic pericarditis or constrictive pericarditis. Clinical correlation recommended. Previewed by: Dr. Jb Collado DO (Electronically Signed) Final Date: 28 November 2024 16:54
--- NOTE | 2024-11-28 21:16 | P.PN ---
Subjective Patient seen and evaluated at bedside. Patient doing well, tolerating diet. Objective - Vital Signs Vital signs: Vital Signs Temp 97.6 F 11/28/24 19:23 Pulse 78 11/28/24 19:23 Resp 17 11/28/24 19:23 BP 171/90 11/28/24 19:23 Pulse Ox 97 11/28/24 19:23 FiO2 Intake & Output 11/28/24 11/28/24 11/29/24 06:59 18:59 06:59 Intake Total 120 Balance 120 Intake: Oral 120 Other: Voiding Method Toilet # Voids 3 3 - Exam gen: nad cv: rrr pul: non labored breathing abd: soft, non distended, non tender to palpation, no guarding or rebound tenderness - Labs CBC & Chem 7: 11/28/24 03:40 11/28/24 03:40 Labs: Abnormal Lab Results - Last 24 Hours (Table) 11/27/24 11/28/24 11/28/24 Range/Units 20:55 03:40 03:40 WBC 10.29 H (4.50-10.00) X 10*3/uL RBC 3.24 L (4.10-5.20) X 10*6/uL Hgb 9.8 L (12.0-15.0) g/dL Hct 31.5 L (37.2-46.3) % MCV 97.2 H (80.0-97.0) FL MCHC 31.1 L (32.0-37.0) g/dL RDW 16.1 H (11.5-14.5) % Immature Gran # 0.06 H (0.00-0.04) X 10*3/uL Neutrophils # 9.51 H (1.80-7.70) X 10*3/uL Lymphocytes # 0.42 L (0.90-5.00) X 10*3/uL Eosinophils # 0.01 L (0.04-0.35) X 10*3/uL Sodium 131 L (137-145) mmol/L Potassium 3.4 L (3.5-5.1) mmol/L BUN <2 L (7-17) mg/dL Creatinine 0.32 L (0.52-1.04) mg/dL Glucose 124 H (74-99) mg/dL Calcium 8.3 L (8.4-10.2) mg/dL Total Protein 5.6 L (6.3-8.2) g/dL Albumin 2.7 L (3.5-5.0) g/dL Assessment and Plan Assessment: ASSESSMENT: POD#5 ex lap with hartmanns 1. Complicated diverticulitis with intra-abdominal abscess 2. Small bowel obstruction PLAN: -Advanced to regular diet -Continue pain management -Continue IV fluids -Continue antibiotics -Incentive spirometer ordered -Encourage patient increase activity level -AM labs -GI prophylaxis Pepcid and DVT prophylaxis subcu heparin Tim Peace DO [facility] [phone] Time with Patient: Less than 30
--- NOTE | 2024-11-29 10:46 | P.PN ---
Subjective HISTORY OF PRESENT ILLNESS: This is a pleasant 59-year-old with past medical history significant for hypertension, hyperlipidemia, tobacco abuse, abdominal abscess/diverticulitis. 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 She has had lengthy hospitalizations over the last 2 to 3 weeks. Initially she was having abdominal pain and found to have an abscess and therefore transferred to [facility] and underwent abscess drainage. The drain was removed however had recurrent abdominal pain and therefore presented back to the emergency department with more abdominal pain and continued abscess. She eventually underwent exploratory laparotomy and colostomy placement with diverticulitis and has been on antibiotics. She states her pain in her abdomen is slowly improving. Cardiology was consulted secondary to 8 beat run of wide-complex tachycardia at approximately 150 bpm. She was asymptomatic from this. She denies any chest pain or pressure. Denies any significant shortness of breath. Patient has been in pain and has needed incre asing doses of antihypertensive medications. 11/29/2024 Patient examined this morning at the bedside. Patient currently denies any chest pain or pressure. She denies any shortness of breath. Echocardiogram completed revealing ejection fraction 55 to 60%, no obvious regional wall motion abnormalities, mild MR, trace TR, trace pulmonic regurgitation, small pericardial effusion. Systolic blood pressures elevated between [id number]. PHYSICAL EXAM: VITAL SIGNS: Reviewed. GENERAL: Well-developed in no acute distress. NECK: Supple. No JVD or thyromegaly LUNGS: Respirations even and unlabored. Lungs essentially clear to auscultation bilaterally. HEART: Regular rate and rhythm. S1 and S2 heard. S4 noted. Systolic murmur noted. EXTREMITIES: Normal range of motion. No clubbing or cyanosis. Peripheral pulses intact. No lower extremity edema ASSESSMENT: Abscess/diverticulitis status post surgery/colostomy Nonsustained ventricular tachycardia Hypertension Hyperlipidemia Tobacco abuse Small pericardial effusion PLAN: Increase metoprolol succinate to 50 mg twice a day Continue to monitor blood pressure Continue telemetry monitoring Further recommendations pending patient course Patient to follow-up postdischarge with Dr. Collado Nurse practitioner note has been reviewed by physician. Signing provider agrees with the documented findings, assessment, and plan of care documented by SALON SHAMPOO ASSISTANT as a scribe. Objective - Vital Signs Vital signs: Vital Signs Temp 97.7 F 11/29/24 07:24 Pulse 82 11/29/24 09:15 Resp 18 11/29/24 07:24 BP 153/92 11/29/24 07:24 Pulse Ox 92 L 11/29/24 07:24 FiO2 Intake & Output 11/28/24 11/29/24 11/29/24 18:59 06:59 18:59 Intake Total 120 Balance 120 Intake: Oral 120 Other: Voiding Method Toilet # Voids 3 6 # Bowel Movements 1 - Labs CBC & Chem 7: 11/28/24 03:40 11/28/24 03:40
--- NOTE | 2024-11-29 12:23 | PN ---
PROGRESS NOTE DATE OF SERVICE: 11/28/2024 Status post repair, bowel, extraction of diverticular abscess with colostomy. PHYSICAL EXAMINATION: CARDIOVASCULAR: S1 and S2. LUNGS: Transmitted upper airway sounds. GI: Soft. HEMATOLOGY: Negative for Homans. VITAL SIGNS: Temperature 97.4, O2 92 on room air. Blood pressure 150s to 170s over 70s to 90s, pulse 76. Status post ileostomy, COPD. She had a run of SVT with low magnesium, and low potassium. She is on protocol to replace those. No further arrhythmias. Wait for Cardiology to evaluate echo. White count remains at 10.29, hemoglobin is 9.8, sodium 131, potassium 4.3. Ambulate as tolerated. Continue on wound care and ileostomy teaching. PT and OT. Breathing treatments, replacement, may need potassium. Prognosis is guarded. MMTERRANCEL / IJN: [id number] /
[2024-11-29] MEDS: HYDROcodone/APAP 5-325MG 1 EACH TAB PO PRN (12:31)
[2024-11-29] MEDS: PIPERACILLIN-TAZOBACTAM 3.375 GM in SODIUM CHLORIDE 0.9% 100 ML IVPB SCH (12:32)
[2024-11-29] MEDS: MAGNESIUM OXIDE 400 MG TAB PO SCH (12:32)
--- NOTE | 2024-11-29 12:32 | CT ---
EXAMINATION TYPE: CT chest wo con DATE OF EXAM: 11/29/2024 11:51 AM COMPARISON: 11/12/2024 CLINICAL INDICATION: Female, 59 years old with history of hypoxia; PHH, HYPOXIA TECHNIQUE: Multiple axial images were obtained through the chest. Sagittal and coronal reformats were created for review. MIP was performed on a separate workstation. Contrast used: mL of (None if empty) Oral contrast used: (None if empty) CT DLP: 250.3 mGycm, Automated exposure control for dose reduction was used. FINDINGS: LUNGS/ PLEURA: Trace left pleural effusion with associated atelectasis. Right upper lobe 3 mm pulmona ry nodule. Similar prior. Scattered groundglass opacities in the posterior aspect of the right upper lobe series 201 image 53 also affecting the left upper lobe anteriorly. Heart series 201 image 59 and medially in the right upper lobe on the same image. No pneumothorax or focal consolidation. AIRWAY: Patent and unremarkable. HEART: Size within normal limits. Mild coronary artery calcifications present. MEDIASTINUM: No gross evidence of adenopathy. VASCULATURE: No aortic aneurysm. Mild ectasia of ascending thoracic aorta up to 42 mm. MUSCULOSKELETAL: No acute osseous abnormalities SOFT TISSUES/LYMPH NODES: Unremarkable. LOWER NECK: No significant findings. UPPER ABDOMEN: Heterogenous appearance to liver with geographic areas of lower attenuation. Surgical clips partially visualized in the anterior abdominal wall. IMPRESSION: 1. Groundglass opacities which are subtle in the posterior aspect of the right upper lobe and anteri or aspect of the left upper lobe chronic for atypical pneumonia. 2. Trace left pleural effusion with associated atelectasis. 3. Mild ascending thoracic aorta ectasia up to 42 mm. 4. Heterogenous liver appearance suggesting geographic fatty infiltration. Consider MRI for complete evaluation of the liver. [facility], , 11/29/2024 12:30 PM
--- NOTE | 2024-11-29 12:48 | P.PN ---
Subjective Progress Note Date: 11/29/24 SURGICAL PROGRESS NOTE CHIEF COMPLAINT: Diverticulitis with abscess HISTORY OF PRESENT ILLNESS: Patient is postop day #6 status post exploratory laparotomy, sigmoidectomy with end colostomy and ileocecectomy for complicated diverticulitis, intra-abdominal abscesses and small bowel obstruction. Patient reports her pain is controlled. Her ostomy is functioning. She has her ostomy teaching. JANETH drain with purulent drainage. WBC 10.29 Hgb 9.8 platelets 396 sodium 131 potassium is 4.3 creatinine 0.32. Medicine service has ordered a CT scan of the chest PHYSICAL EXAM: VITAL SIGNS: Reviewed. GENERAL: Well-developed in no acute distress. ABDOMEN: Soft. Nondistended. Nontender. Incisional dressing clean dry and intact. Ostomy with stool. JANETH drain purulent drainage NEUROLOGIC: Alert and oriented. Cranial nerves II through XII grossly intact. ASSESSMENT: 1. Complicated diverticulitis with intra-abdominal abscess 2. Small bowel obstruction PLAN: -Patient can be discharged from surgical standpoint -continue regular diet -Discharge antibiotics per ID service -Patient will need home care at discharge -Patient be discharged with JANETH drain Physician Napper Tender note has been reviewed by physician. Signing provider agrees with the documented findings, assessment, and plan of care. Objective - Vital Signs Vital signs: Vital Signs Temp 97.7 F 11/29/24 07:24 Pulse 82 11/29/24 09:15 Resp 18 11/29/24 09:35 BP 153/92 11/29/24 07:24 Pulse Ox 92 L 11/29/24 07:24 FiO2 Intake & Output 11/28/24 11/29/24 11/29/24 18:59 06:59 18:59 Intake Total 120 Balance 120 Intake: Oral 120 Other: Voiding Method Toilet # Voids 3 6 # Bowel Movements 1 - Labs CBC & Chem 7: 11/28/24 03:40 11/28/24 03:40
[2024-11-29] MEDS: AZITHROMYCIN 500 MG in SODIUM CHLORIDE 0.9% 250 ML IVPB SCH (17:04)
--- NOTE | 2024-11-29 17:29 | P.PN ---
Subjective Progress Note Date: 11/29/24 Principal diagnosis: Reason for follow-up is perforated diverticulitis with intra-abdominal abscess Patient is a 59-year-old female with a past medical history significa nt for reflux depression recently evaluated and treated at [facility] for perforated diverticulitis with an abscess status post CT-guided drainage, now presenting with abdominal pain and has been diagnosed with intra- abdominal abscess perforated diverticulitis.Patient is status post Exploratory Laparotomy, Sigmoidectomy with End Colostomy and ileocecectomy completed on 11/23/2024 for perforated diverticulitis with intra-abdominal abscess On today's evaluation that is 11/29/2024,the patient denies any fever or any chills, patient is breathing comfortably on room air, the patient denies chest pain shortness of breath and no significant cough, patient abdominal pain is currently controlled did have output in her colostomy tolerating her diet. The patient white count is 10.29, creatinine is 0.32 Objective - Vital Signs Vital signs: Vital Signs Temp 97.7 F 11/29/24 07:24 Pulse 82 11/29/24 09:15 Resp 18 11/29/24 09:35 BP 153/92 11/29/24 07:24 Pulse Ox 92 L 11/29/24 07:24 FiO2 Intake & Output 11/28/24 11/29/24 11/29/24 18:59 06:59 18:59 Intake Total 120 Balance 120 Intake: Oral 120 Other: Voiding Method Toilet # Voids 3 6 # Bowel Movements 1 - Exam GENERAL DESCRIPTION: Middle-age female lying in bed in no distress RESPIRATORY SYSTEM: Unlabored breathing , decreased breath sounds at bases HEART: S1 S2 regular rate and rhythm , ABDOMEN: Soft , midline incision intact did have stool in the colostomy EXTREMITIES: No edema feet - Labs CBC & Chem 7: 11/28/24 03:40 11/28/24 03:40 Assessment and Plan (1) Sepsis Current Visit: Yes Status: Acute Code(s): A41.9 - SEPSIS, UNSPECIFIED ORGANISM SNOMED Code(s): 94482658 (2) Intra-abdominal abscess Current Visit: Yes Status: Acute Code(s): K65.1 - PERITONEAL ABSCESS SNOMED Code(s): 70339446 (3) Diverticulitis Current Visit: Yes Status: Acute Code(s): K57.92 - DVTRCLI OF INTEST, PART UNSP, W/O PERF OR ABSCESS W/O BLEED SNOMED Code(s): 233616693 Plan: 1-patient presented to hospital with sepsis in this patient who did have fever elevated white count source is perforated diverticulitis with intra-abdominal abscess that apparently did not respond very well to the treatment provided at [facility] and failing outpatient oral antibiotic therapy. 2-apparently IR was not able to drain the abscess patient is status post Sigmoidectomy with End Colostomy and ileocecectomy completed on 12/03/2024 for perforated diverticulitis with an abscess but no cultures were done 3-patient is afebrile patient white count has normalized, 4patient is currently be treated with Zosyn to continue while inpatient will transition to oral antibiotics on discharge Dictation was produced using [employer] dictation software. please excuse any grammatical, word or spelling errors. Time with Patient: Less than 30
[2024-11-29] MEDS: METOPROLOL SUCCINATE (ER) 50 MG TAB.ER.24H PO SCH (20:32)
--- NOTE | 2024-11-29 22:21 | PN ---
PROGRESS NOTE SUBJECTIVE: Azucena Clark remains with complicated diverticulitis, status post ileostomy, CAT scan of the chest shows pneumonia. We are going to start her on azithromycin. Continue on Zosyn for pneumonia, oxygen p.r.n. and breathing treatments. Echocardiogram reviewed. The patient will get wound care and ostomy care per Surgery. She feels weak and fatigued. Continue current treatments. PHYSICAL EXAMINATION: LUNGS: Clear. CARDIOVASCULAR: S1, S2. ABDOMEN: Wound care and ileostomy. EXTREMITIES: No edema. Continue with broad-spectrum antibiotics for pneumonia treatment. Ileostomy care, wound care, surgical care. Status post diverticular abscess removal. Prognosis is guarded. MMODL / IJN: [id number] /
--- NOTE | 2024-11-30 11:58 | P.PN ---
Subjective HISTORY OF PRESENT ILLNESS: This is a pleasant 59-year-old with past medical history significant for hypertension, hyperlipidemia, tobacco abuse, abdominal abscess/diverticulitis. She does not follow with a gas jockey. She has had lengthy hospitalizations over the last 2 to 3 weeks. Initially she was having abdominal pain and found to have an abscess and therefore transferred to [facility] and underwent abscess drainage. The drain was removed however had recurrent abdominal pain and therefore presented back to the emergency department with more abdominal pain and continued abscess. She eventually underwent exploratory laparotomy and colostomy placement with diverticulitis and has been on antibiotics. She states her pain in her abdomen is slowly improving. Cardiology was consulted secondary to 8 beat run of wide-complex tachycardia at approximately 150 bpm. She was asymptomatic from this. She denies any chest pain or pressure. Denies any significant shortness of breath. Patient has been in pain and has needed incre asing doses of antihypertensive medications. 11/29/2024 Patient examined this morning at the bedside. Patient currently denies any chest pain or pressure. She denies any shortness of breath. Echocardiogram completed revealing ejection fraction 55 to 60%, no obvious regional wall motion abnormalities, mild MR, trace TR, trace pulmonic regurgitation, small pericardial effusion. Systolic blood pressures elevated between [id number]. 11/30/2024 Patient examined this morning at the bedside. Patient currently denies chest pain or pressure. She denies shortness of breath. Blood pressure is improved today. PHYSICAL EXAM: VITAL SIGNS: Reviewed. GENERAL: Well-developed in no acute distress. NECK: Supple. No JVD or thyromegaly LUNGS: Respirations even and unlabored. Lungs essentially clear to auscultation bilaterally. HEART: Regular rate and rhythm. S1 and S2 heard. S4 noted. Systolic murmur noted. EXTREMITIES: Normal range of motion. No clubbing or cyanosis. Peripheral pulses intact. No lower extremity edema ASSESSMENT: Abscess/diverticulitis status post surgery/colostomy Nonsustained ventricular tachycardia Hypertension Hyperlipidemia Tobacco abuse Small pericardial effusion PLAN: Continue current cardiac medications including amlodipine and metoprolol Patient is currently stable for discharge from a cardiac standpoint Patient to follow-up postdischarge with Dr. Collado We will sign off. Please reconsult if needed. Nurse practitioner note has been reviewed by physician. Signing provider agrees with the documented findings, assessment, and plan of care documented by POWERHOUSE MECHANIC as a scribe. Objective - Vital Signs Vital signs: Vital Signs Temp 97.9 F 11/30/24 07:12 Pulse 80 11/30/24 09:12 Resp 17 11/30/24 07:12 BP 156/82 11/30/24 07:12 Pulse Ox 94 L 11/30/24 07:12 FiO2 Intake & Output 11/29/24 11/30/24 11/30/24 18:59 06:59 18:59 Weight 56.699 kg Other: Voiding Method Toilet # Voids 3 1 # Bowel Movements 1 - Labs CBC & Chem 7: 11/28/24 03:40 11/28/24 03:40
--- NOTE | 2024-11-30 14:38 | P.PN ---
Subjective Progress Note Date: 11/30/24 SURGICAL PROGRESS NOTE CHIEF COMPLAINT: Diverticulitis with abscess HISTORY OF PRESENT ILLNESS: Patient is postop day #7 status post exploratory laparotomy, sigmoidectomy with end colostomy and ileocecectomy for complicated diverticulitis, intra-abdominal abscesses and small bowel obstruction. Patient reports her pain is controlled. Her ostomy is functioning. She has had her ostomy teaching. JANETH drain with minimal purulent drainage. Afebrile. PHYSICAL EXAM: VITAL SIGNS: Reviewed. GENERAL: Well-developed in no acute distress. ABDOMEN: Soft. Nondistended. Incision with drainage noted. When pressure applied to incision no drainage expressed. No erythema at the midline incision site. JANETH drain purulent drainage. NEUROLOGIC: Alert and oriented. Cranial nerves II through XII grossly intact. ASSESSMENT: 1. Complicated diverticulitis with intra-abdominal abscess 2. Small bowel obstruction PLAN: -Chlorhexidine wipe to midline incision. Apply ABD dressing. -Patient can be discharged from surgical standpoint -continue low fiber diet -Discharge antibiotics per ID service -Patient will need home care at discharge -Patient to be discharged with JANETH drain Physician Software Asset Manager note has been reviewed by physician. Signing provider agrees with the documented findings, assessment, and plan of care. Objective - Vital Signs Vital signs: Vital Signs Temp 97.8 F 11/30/24 13:16 Pulse 78 11/30/24 13:16 Resp 17 11/30/24 13:16 BP 134/80 11/30/24 13:16 Pulse Ox 96 11/30/24 13:16 FiO2 Intake & Output 11/29/24 11/30/24 11/30/24 18:59 06:59 18:59 Weight 56.699 kg Other: Voiding Method Toilet # Voids 3 1 # Bowel Movements 1 - Labs CBC & Chem 7: 11/28/24 03:40 11/28/24 03:40
--- NOTE | 2024-11-30 15:23 | P.PN ---
Subjective Progress Note Date: 11/30/24 Principal diagnosis: Reason for follow-up is perforated diverticulitis with intra-abdominal abscess Patient is a 59-year-old female with a past medical history significa nt for reflux depression recently evaluated and treated at [facility] for perforated diverticulitis with an abscess status post CT-guided drainage, now presenting with abdominal pain and has been diagnosed with intra- abdominal abscess perforated diverticulitis.Patient is status post Exploratory Laparotomy, Sigmoidectomy with End Colostomy and ileocecectomy completed on 11/23/2024 for perforated diverticulitis with intra-abdominal abscess On today's evaluation that is 11/30/2024,the patient remains to be afebrile, patient is on room air not requiring supplemental oxygen and denies any shortness of breath no chest pain or cough.Patient denies having any nausea or vomiting, no abdominal pain and did have output in her colostomy. No new lab has been obtained today blood culture has been negative Objective - Vital Signs Vital signs: Vital Signs Temp 97.8 F 11/30/24 13:16 Pulse 78 11/30/24 13:16 Resp 17 11/30/24 13:16 BP 134/80 11/30/24 13:16 Pulse Ox 96 11/30/24 13:16 FiO2 Intake & Output 11/29/24 11/30/24 11/30/24 18:59 06:59 18:59 Weight 56.699 kg Other: Voiding Method Toilet # Voids 3 1 # Bowel Movements 1 - Exam GENERAL DESCRIPTION: Middle-age female lying in bed in no distress RESPIRATORY SYSTEM: Unlabored breathing , decreased breath sounds at bases HEART: S1 S2 regular rate and rhythm , ABDOMEN: Soft , midline incision intact did have stool in the colostomy EXTREMITIES: No edema feet - Labs CBC & Chem 7: 11/28/24 03:40 11/28/24 03:40 Assessment and Plan (1) Sepsis Current Visit: Yes Status: Acute Code(s): A41.9 - SEPSIS, UNSPECIFIED ORGANI SM SNOMED Code(s): 76331105 (2) Intra-abdominal abscess Current Visit: Yes Status: Acute Code(s): K65.1 - PERITONEAL ABSCESS SNOMED Code(s): 19270926 (3) Diverticulitis Current Visit: Yes Status: Acute Code(s): K57.92 - DVTRCLI OF INTEST, PART UNSP, W/O PERF OR ABSCESS W/O BLEED SNOMED Code(s): 498282386 Plan: 1-patient presented to hospital with sepsis in this patient who did have fever elevated white count source is perforated diverticulitis with intra-abdominal abscess that apparently did not respond very well to the treatment provided at [facility] and failing outpatient oral antibiotic therapy. 2-apparently IR was not able to drain the abscess patient is status post Sigmoidectomy with End Colostomy and ileocecectomy completed on 12/03/2024 for perforated diverticulitis with an abscess but no cultures were done 3-patient is slowly clinically improving remains to be afebrile abdominal symptom has improved we will continue with Zosyn while inpatient however able to finish therapy with oral Ceftin and Flagyl on discharge once cleared by other travel service consultant Dictation was produced using [email or web address] dictation software. please excuse any grammatical, word or spelling errors. Time with Patient: Less than 30
--- NOTE | 2024-11-30 22:00 | PN ---
PROGRESS NOTE Being treated for pneumonia. She is status post diverticular abscess removal and colonoscopy with ileostomy. White count is down to 10.29, hemoglobin is 9.8. Sodium 131, potassium 4.3. Albumin is 2.7. PHYSICAL EXAMINATION: CARDIOVASCULAR: S1 and S2. LUNGS: Transmitted upper airway sounds. ABDOMEN: Ileostomy intact. VITAL SIGNS: Reviewed. ASSESSMENT: 1. Sepsis. 2. Diverticular abscess. 3. Diverticulitis. 4. Community-acquired pneumonia. Continue with Zosyn. Finish therapy with oral Ceftin and Flagyl. Azithromycin for pneumonia also. Prognosis is guarded. MMODL / IJN: [id number] /
[2024-12-01 09:03] VITALS: RESP 18
[2024-12-01 11:40] LABS: Basophils % (A) 0 %; Eosinophils # (A) 0.1 k/uL (0-0.7); Eosinophils % (A) 1 %; HCT 37.6 % (34.0-46.0); HGB 11.5 gm/dL (11.4-16.0); Hypochromasia Slight; Lymphocytes # (A) 1.2 k/uL (1.0-4.8); Lymphocytes % (A) 9 %; MCHC 30.5 g/dL (31.0-37.0); MCV 98.4 fL (80.0-100.0); Macrocytosis Slight; Mean Platelet Volume 7.6; Monocytes % (A) 8 %; Neutrophils # (A) 10.6 k/uL (1.3-7.7); Neutrophils % (A) 81 %; Platelet Count 427 k/uL (150-450); RBC 3.82 m/uL (3.80-5.40); WBC 13.1 k/uL (3.8-10.6)
--- NOTE | 2024-12-01 14:45 | P.PN ---
Subjective Progress Note Date: 12/01/24 Principal diagnosis: Reason for follow-up is perforated diverticulitis with intra-abdominal abscess Patient is a 59-year-old female with a past medical history significa nt for reflux depression recently evaluated and treated at [facility] for perforated diverticulitis with an abscess status post CT-guided drainage, now presenting with abdominal pain and has been diagnosed with intra- abdominal abscess perforated diverticulitis.Patient is status post Exploratory Laparotomy, Sigmoidectomy with End Colostomy and ileocecectomy completed on 11/23/2024 for perforated diverticulitis with intra-abdominal abscess On today's evaluation that is 12/01/2024, the patient continues to be afebrile, the patient is on room air and breathing comfortably, the Pt denies having any chest pain or cough, the patient has been complaining of some nausea but no vomiting today and some right-sided abdominal pain. Patient white count is up to 13.1 Objective - Vital Signs Vital signs: Vital Signs Temp 98.2 F 12/01/24 07:59 Pulse 65 12/01/24 07:59 Resp 18 12/01/24 07:59 BP 147/87 12/01/24 07:59 Pulse Ox 94 L 12/01/24 07:59 FiO2 Intake & Output 11/30/24 12/01/24 12/01/24 18:59 06:59 18:59 Intake Total 2009 1650 Output Total 10 Balance 2009 1640 Intake: Intake, IV Titration 2009 Amount Azithromycin 500 mg In 250 Sodium Chloride 0.9% 250 ml @ 250 mls/hr IVPB DAILY [facility] Rx#:[id number] Lactated Ringers 1,000 ml 1560 @ 130 mls/hr IV .Q7H42M [facility] Rx#:[id number] Piperacillin-Tazobactam 3 200 .375 gm In Sodium Chloride 0.9% 100 ml @ 25 mls/hr IVPB Q8HR [facility] Rx# :[id number] Oral 1650 Output: Drainage 10 Right Lower Abdomen 10 Other: Voiding Method Toilet # Voids 5 # Bowel Movements 4 - Exam GENERAL DESCRIPTION: Middle-age female lying in bed in no distress RESPIRATORY SYSTEM: Unlabored breathing , decreased breath sounds at bases HEART: S1 S2 regular rate and rhythm , ABDOMEN: Soft , patient did have right-sided tenderness EXTREMITIES: No edema feet - Labs CBC & Chem 7: 12/01/24 11:25 11/28/24 03:40 Assessment and Plan (1) Sepsis Current Visit: Yes Status: Acute Code(s): A41.9 - SEPSIS, UNSPECIFIED ORGA NISM SNOMED Code(s): 87091541 (2) Intra-abdominal abscess Current Visit: Yes Status: Acute Code(s): K65.1 - PERITONEAL ABSCESS SNOMED Code(s): 94006411 (3) Diverticulitis Current Visit: Yes Status: Acute Code(s): K57.92 - DVTRCLI OF INTEST, PART UNSP, W/O PERF OR ABSCESS W/O BLEED SNOMED Code(s): 106127088 Plan: 1-patient presented to hospital with sepsis in this patient who did have fever e levated white count source is perforated diverticulitis with intra-abdominal abscess that apparently did not respond very well to the treatment provided at [facility] and failing outpatient oral antibiotic therapy. 2-apparently IR was not able to drain the abscess patient is status post Sigmoidectomy with End Colostomy and ileocecectomy completed on 12/03/2024 for perforated diverticulitis with an abscess but no cultures were done 3-patient is complaining of nausea and also having right-sided tenderness discussed the case with the surgical team will benefit from CT abdominal pelvis continue with Mel Dictation was produced using [employer] dictation software. please excuse any grammatical, word or spelling errors. Time with Patient: Less than 30
--- NOTE | 2024-12-01 15:10 | P.PN ---
Subjective Progress Note Date: 12/01/24 SURGICAL PROGRESS NOTE CHIEF COMPLAINT: Diverticulitis with abscess HISTORY OF PRESENT ILLNESS: Patient is postop day #8 status post exploratory laparotomy, sigmoidectomy with end colostomy and ileocecectomy for complicated diverticulitis, intra-abdominal abscesses and small bowel obstruction. Patient complains of feeling nauseous today. She continues to have drainage at the distal incision site. Ostomy is functioning. Afebrile. WBC has increased from 10.29-13.1 PHYSICAL EXAM: VITAL SIGNS: Reviewed. GENERAL: Well-developed in no acute distress. ABDOMEN: Soft. Nondistended. Incision with purulent drainage at the distal aspect of incision. Erythema noted at the umbilicus area of the incision site. JANETH drain with serosanguineous purulent drainage NEUROLOGIC: Alert and oriented. Cranial nerves II through XII grossly intact. ASSESSMENT: 1. Complicated diverticulitis with intra-abdominal abscess 2. Small bowel obstruction PLAN: -Due to patient having incisional drainage and a increase in white count we will order CT scan abdomen pelvis with IV contrast -If CT scan is negative patient can be discharged today -Antibiotics per ID service -Patient can shower -Recommend to clean incision daily with chlorhexidine wipe -continue low fiber diet -Discharge antibiotics per ID service -Patient will need home care at discharge -Patient to be discharged with JANETH drain Physician Ballet Dancer note has been reviewed by physician. Signing provider agrees with the documented findings, assessment, and plan of care. Attestation Patient seen and examined at bedside. Postoperative day #8, exploratory laparotomy, sigmoidectomy with end colostomy and ileocecectomy. Patient had mild incisional drainage and mild increase in leukocytosis. CT of the abdomen and pelvis with IV contrast has been ordered. Without any significant findings on CT, patient is surgically stable for discharge. Antibiotics per ID service. JANETH drain to remain in place and to be removed in surgery clinic. Patient will need home care at discharge. Skyler Adams DO Objective - Vital Signs Vital signs: Vital Signs Temp 98.2 F 12/01/24 07:59 Pulse 65 12/01/24 07:59 Resp 18 12/01/24 07:59 BP 147/87 12/01/24 07:59 Pulse Ox 94 L 12/01/24 07:59 FiO2 Intake & Output 11/30/24 12/01/24 12/01/24 18:59 06:59 18:59 Intake Total 2009 1650 Output Total 10 Balance 2009 1640 Intake: Intake, IV Titration 2009 Amount Azithromycin 500 mg In 250 Sodium Chloride 0.9% 250 ml @ 250 mls/hr IVPB DAILY [facility] Rx#:[id number] Lactated Ringers 1,000 ml 1560 @ 130 mls/hr IV .Q7H42M [facility] Rx#:[id number] Piperacillin-Tazobactam 3 200 .375 gm In Sodium Chloride 0.9% 100 ml @ 25 mls/hr IVPB Q8HR [facility] Rx# :[id number] Oral 1650 Output: Drainage 10 Right Lower Abdomen 10 Other: Voiding Method Toilet # Voids 5 # Bowel Movements 4 - Labs CBC & Chem 7: 12/01/24 11:25 11/28/24 03:40 Labs: Abnormal Lab Results - Last 24 Hours (Table) 12/01/24 Range/Units 11:25 WBC 13.1 H (3.8-10.6) k/uL MCHC 30.5 L (31.0-37.0) g/dL RDW 16.0 H (11.5-15.5) % Neutrophils # 10.6 H (1.3-7.7) k/uL
--- NOTE | 2024-12-01 16:18 | CT ---
EXAMINATION TYPE: CT abdomen pelvis w con CT DLP: 639.9 mGycm, Automated exposure control for dose reduction was used. DATE OF EXAM: 12/01/2024 4:04 PM COMPARISON: CT abdomen pelvis 11/21/2024, CT chest 11/29/2024 CLINICAL INDICATION:Female, 59 years old with history of Diverticulitis, incisional drainage, leukocy tosis; Diverticulitis, incisional drainage, leukocytosis TECHNIQUE: Standard CT of the abdomen and pelvis following the administration of 100 cc of Isovue 3 00 IV contrast material. Coronal and sagittal reformats were performed. FINDINGS: LOWER CHEST: Small left pleural effusion with associated atelectasis. Minimal right lower lobe depend ent subsegmental atelectasis. Prominent heart. No pericardial effusion. ABDOMEN LIVER: No focal lesion. Portal venous system is patent. GALLBLADDER AND BILE DUCTS: Tract gallbladder. No biliary ductal dilatation. PANCREAS: Unremarkable. SPLEEN: Unremarkable. ADRENAL GLANDS: Unremarkable. KIDNEYS AND URETERS: No evidence of hydronephrosis or renal calculus. The kidneys enhance symmetrical ly. Contrast is demonstrated within both collecting systems on the delayed phase. PELVIS BLADDER: Underdistended but grossly unremarkable. REPRODUCTIVE: The uterus is surgically absent. ABDOMEN & PELVIS STOMACH AND BOWEL: Stomach and duodenum are unremarkable. Postsurgical changes of the bowel. Presacra l edema. There is some wall thickening of the adjacent small bowel without significant small bowel di latation. Circumferential wall thickening of the colon. There is some diffuse air-fluid levels within the bowel on the left quadrant. No evidence of bowel obstruction. PERITONEUM: No evidence of pneumoperitoneum. Trace free fluid in the pelvis. VASCULATURE: Moderate atherosclerotic calcifications are present throughout the abdominal aorta and i ts branches. No abdominal aortic aneurysm. Ectasia of descending thoracic aorta measuring up to 3.2 c m. The celiac access and SMA are widely patent. The bilateral renal arteries are widely patent. MUSCULOSKELETAL: No acute osseous abnormalities LYMPH NODES: No evidence for lymphadenopathy. SOFT TISSUE/ABDOMINAL WALL: Degenerative changes of the anterior horn along with skin alda and fat stranding. Along the inferior aspect of the midline incision is some fluid without organization (ser ies 201, image 64). There is a anterior right lower abdominal wall surgical drain entering the perito neum with distal tip terminating in the anterior right pelvis. No surrounding fluid. Left lower quadr ant ostomy identified with some stranding changes. IMPRESSION: 1. Postsurgical change of the bowel with left lower quadrant ostomy. There is a small amount of fluid along the inferior aspect of the midline abdominal wall incision without organization or gas. 2. Trace amount of ascites without definitive organized fluid collection within the abdomen or pelvis . 3. Circumferential wall thickening of the small bowel and colon likely reactive to recent surgery how ever underlying infectious/inflammatory process is not excluded. 4. Small left pleural effusion with associated atelectasis. [facility], , 12/01/2024 4:15 PM
[2024-12-01 17:05] VITALS: BP 164/91; PULSE 62; TEMP 98.6
[2024-12-01] MEDS ORDERED: PANTOPRAZOLE 40 MG TABLET PO SCH (17:30)
[2024-12-01] MEDS ORDERED: CEFDINIR 300 MG CAP PO SCH (21:00)
--- NOTE | 2024-12-02 00:59 | PN ---
PROGRESS NOTE SUBJECTIVE: She is scheduled to go home today, but after she ate food today, she had severe right lateral flank pain as well as abdominal pain, nausea. Does not feel like she could go home. We want to keep her overnight. She is scheduled to get a CAT scan of her abdomen. OBJECTIVE: PSYCH: Fair mood and affect. CARDIOVASCULAR: S1, S2. HEMATOLOGY: Negative Homans. PLAN: Continue current treatment. Get a CAT scan. Continue IV antibiotics. Prognosis guarded. MMODL / IJN: [id number] /
== END 2024-12-01 19:04 | disposition home or self-care (01) | DRG 853 ==
LOC: EC 14:21 → 4SSUR 19:04
PROVIDERS: ADMIT Family Medicine; ATTEND Family Medicine
PROC: 0DBH0ZZ Excision of Cecum, Open Approach (ICD-10-PCS; 2024-11-23)
PROC: 0DBP0ZZ Excision of Rectum, Open Approach (ICD-10-PCS; 2024-11-23)
PROC: 0D1M0Z4 Bypass Descending Colon to Cutaneous, Open Approach (ICD-10-PCS; 2024-11-23)
PROC: 0DTN0ZZ Resection of Sigmoid Colon, Open Approach (ICD-10-PCS; principal; 2024-11-23 11:15)
DX: A41.9 Sepsis, unspecified organism (principal); J18.9 Pneumonia, unspecified organism; K65.1 Peritoneal abscess; I31.39 Other pericardial effusion (noninflammatory); K56.609 Unspecified intestinal obstruction, unspecified as to partial versus complete obstruction; I47.20 Ventricular tachycardia, unspecified; I47.10 Supraventricular tachycardia, unspecified; J44.0 Chronic obstructive pulmonary disease with (acute) lower respiratory infection; I10 Essential (primary) hypertension; F32.A Depression, unspecified; K56.7 Ileus, unspecified; K57.20 Diverticulitis of large intestine with perforation and abscess without bleeding; F17.210 Nicotine dependence, cigarettes, uncomplicated; E83.42 Hypomagnesemia; E78.5 Hyperlipidemia, unspecified; E87.6 Hypokalemia; K21.9 Gastro-esophageal reflux disease without esophagitis; Z86.0100 Personal history of colon polyps, unspecified; Z71.6 Tobacco abuse counseling; Z79.82 Long term (current) use of aspirin; Z79.899 Other long term (current) drug therapy
CPT/HCPCS: 36415; 71250; 74018; 74177; 80048; 80053; 81001; 82150; 83605; 83690; 83735; 84132; 84484; 85025; 87040; 88307; 88341; 88342; 93306; 94640; 96361; 96365; 96375; 96376; 99291

== ENCOUNTER → 2025-03-09 | Outpatient (CLI) | payer BC ==
--- NOTE | 2025-03-09 14:43 | PE ---
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 Images are reviewed on the computer in the coronal, axial, and sagittal planes. Reconstructed rotating images are created on independent works tation and reviewed on the computer. A non-contrast CT is performed in conjunction with the PET sca n. CT DLP: 473 mGycm, Automated exposure control for dose reduction was used. COMPARISON: CT 12/01/2024. 11/29/2024, PET/CT None, MRI: None FINDINGS: Mediastinal SUV mean is 0.6. Hepatic parenchyma SUV mean is 5.7. SKULL BASE AND NECK: No suspicious radiotracer activity. CHEST, MEDIASTINUM, AND HILAR REGION: No suspicious radiotracer activity. ABDOMEN AND PELVIS: No suspicious radiotracer activity. Physiologic uptake is seen throughout the bowel no persistent masses definitively visualized. MUSCULOSKELETAL STRUCTURES: No suspicious radiotracer activity. OTHER CT: mild cardiomegaly. Mild to moderate coronary artery atherosclerosis. Ascending thoracic aor ta dilation up to 3.9 cm which is borderline ectatic. Geographic area of heterogeneity involving the left hepatic lobe medially in segment 4A. Left lower quadrant ostomy present. IMPRESSION: No suspicious radiotracer activity. 03/09/2025 1:35 PM,03/09/2025 12:23 PM,Helen [facility],PET CT fusion skull to thigh,[id number] [facility], , 03/09/2025 2:41 PM
== END | disposition home or self-care (01) ==
LOC: RADPETMAIN 10:27
PROVIDERS: ATTEND Internal Medicine Hematology & Oncology
DX: C7A.8 Other malignant neuroendocrine tumors (principal)
CPT/HCPCS: 78815; A9587